=== PATIENT | male | born 1980 | race Caucasian/White ===

== ENCOUNTER 2016-12-21 01:32 | Inpatient (IN) | payer OTHER ==
[~2016-12-21] VITALS: Ht 177.8 cm; Wt 166.0 kg
[~2016-12-21 01:32] MED LIST: ACET-8386 PO; ALBU-136 IH; ASCO500C20 PO; FISH10005 PO; GABA300C PO; LEVO500T6 PO; OMEP20TC10 PO; SULF1TAB12 PO; ZOLP5TAB1 PO
[2016-12-21 01:43] VITALS: BP 111/59
--- NOTE | 2016-12-21 02:15 | NUR ---
PATIENT BIB WHEELCHAIR TO ER BED 3.
--- NOTE | 2016-12-21 02:30 | NUR ---
PATIENT BEING EVALUATED BY DR. ORTIZ.
--- NOTE | 2016-12-21 02:35 | NUR ---
36/M c/o bilateral lower leg pain. Pt dx with bilateral lower leg cellulitis. Pt states the pain in right lower leg is worse than the right. Pt has swelling to bilateral lower legs. Both legs are wrapped with dressings and patient is refusing to have them removed until the doctor sees him. AOX4, states he gets around on the bus and ambulates on his own. Pt states he is homeless at this time.
--- NOTE | 2016-12-21 02:58 | NUR ---
X-Ray at bedside.
[2016-12-21 04:37] LABS: ANION GAP 8.4 (8-16); CARBON DIOXIDE 29.5 mmol/L (21-32); CREATININE 0.8 mg/dL (0.7-1.3); POTASSIUM 3.9 mmol/L (3.5-5.1)
[2016-12-21 04:42] LABS: HEMATOCRIT 31.6 % (36-52); HEMOGLOBIN 9.8 g/dL (12.0-18.0); MEAN CORPUSCULAR HEMOGLOBIN 22 pg (27-31); MEAN CORPUSCULAR HGB CONC 31 g/dL (33-37); MEAN CORPUSCULAR VOLUME 71 fL (80-94); PLATELET COUNT (AUTO) 275 K/uL (140-450); RED BLOOD CELL COUNT(AUTO) 4.46 MIL/uL (4.20-6.10); RED CELL DISTRIBUTION WIDTH 18.2 % (11.6-13.7); WHITE BLOOD COUNT (AUTO) 9.8 K/uL (4.8-10.8)
[2016-12-21 04:49] LABS: TOTAL BILIRUBIN 0.2 mg/dL (0.0-1.0)
[2016-12-21 04:51] LABS: EOSINOPHILS % (MANUAL) 3 % (0-4); LYMPHOCYTES % (MANUAL) 17 % (20-46); MONOCYTES % (MANUAL) 6 % (5-12)
--- NOTE | 2016-12-21 05:07 | NUR ---
Patient noted to have existing wounds upon arrival to ER. Photos taken of wound and placed in chart. Wound covered with dressing.
[2016-12-21] MEDS ORDERED: ACETAMINOPHEN 325 MG TAB PO PRN (05:35)
[2016-12-21] MEDS ORDERED: ONDANSETRON 4 MG/2 ML VIAL IM/IVP PRN (05:35)
--- NOTE | 2016-12-21 06:26 | NUR ---
Patient will be admitted to care of Dr. Hernandez. Admited to TELE. Will go to room 112-B. Belongings list completed. Report to Stephane WILDER.
--- NOTE | 2016-12-21 06:55 | NUR ---
RECEIVED REPORT FROM ER NURSE. PT RESTING IN BED, 36YO MALE, AOX4, ABLE TO VERBALIZE NEEDS. CONDITION STABLE AT THIS TIME. ENDORSED PLAN OF CARE TO AM NURSE TO CONTINUE ADMISSION PROCESS.
[2016-12-21 07:06] LABS: PROTHROMBIN TIME 10.4 secs (10.8-13.4)
[2016-12-21 07:23] LABS: CHOL/HDL RATIO 2.4 (1-4.5); FREE T4 (FREE THYROXINE) 1.06 ng/dL (0.76-1.46); MAGNESIUM 2.1 mg/dL (1.8-2.4); THYROID STIMULATING HORMONE 2.53 uIU/mL (0.34-3.74)
--- NOTE | 2016-12-21 07:26 | NUR ---
RECEIVED PT IN BED. AWAKE. ALERT ORIENTED X4. PT ON O2 AT 2LPM NC. POSITIVE BOWEL SOUNDS NOTED ON FOUR QUADRANTS. PT HAS BILATERAL LEG PAIN, REDNESS WITH BILATERAL THICKNESS ULCERATION NOTED. PT AMBULATORY WITH ASSIST. SAFETY PRECAUTION IN PLACE. CALL LIGHT WITHIN REACH.
[2016-12-21 08:00] VITALS: BP 120/67
--- NOTE | 2016-12-21 08:05 | NUR ---
PATIENT HAS BEEN SCREENED AND CATEGORIZED HIGH RISK. PATIENT WILL BE SEEN WITHIN 1-2 DAYS OF ADMISSION. 12/23/[address]
[2016-12-21] MEDS: LEVOFLOXACIN 750 MG/D5W PREMIX 150 ML IV SCH (08:25)
[2016-12-21] MEDS: NACL 0.9% 1,000 ML IV SCH ×2 (08:25→16:54)
[2016-12-21] MEDS: MORPHINE SULFATE 2 MG/ML SYR IVP PRN (08:41)
[2016-12-21] MEDS: PSYLLIUM 12.2 GM/PKT PO SCH (08:41)
[2016-12-21] MEDS ORDERED: GABA300C PO ×2 (08:55)
[2016-12-21] MEDS ORDERED: OMEP20TC10 PO (08:55)
[2016-12-21] MEDS ORDERED: ACET1TAB93 PO (08:56)
[2016-12-21] MEDS ORDERED: PANTOPRAZOLE 40 MG TABEC PO SCH (09:02)
[2016-12-21] MEDS ORDERED: ASCO500T45 PO (09:05)
[2016-12-21] MEDS ORDERED: ASCORBIC ACID 500 MG TAB PO SCH (09:07)
[2016-12-21] MEDS: GABAPENTIN 300 MG CAP PO SCH ×3 (09:14→16:55)
[2016-12-21] MEDS ORDERED: PNEUMOCOCCAL VACCINE 23 MCG/0.5 ML VIAL IMVAC SCH (10:25)
[2016-12-21 10:26] LABS: APPEARANCE,URINE CLEAR (CLEAR); BILIRUBIN,URINE NEGATIVE (NEGATIVE); BLOOD, URINE NEGATIVE (NEGATIVE); COLOR,URINE YELLOW (YELLOW); LEUKOCYTE ESTERASE ,URINE NEGATIVE (NEGATIVE); NITRITE, URINE NEGATIVE (NEGATIVE); PH,URINE 6.5 (5.0-9.0); UGLUCOSE NEGATIVE (NEGATIVE)
[2016-12-21 10:29] LABS: BARBITURATE, URINE NEG. ng/ml (NEG <=200); BENZODIAZEPINE, URINE NEG. ng/mL (NEG <=200); CANNABINOID, URINE NEG. ng/mL (NEG <=50); COCAINE, URINE NEG. ng/mL (NEG <=300); OPIATE, URINE NEG. ng/mL (NEG <=2000); PHENCYCLIDINE SCREEN,URINE NEG. ng/mL (NEG <=25)
[2016-12-21] MEDS: FERRIC GLUCONATE 125 MG in NACL 0.9% 100 ML IV SCH (10:39)
--- NOTE | 2016-12-21 11:00 | NUR ---
PT OFFERED IF HE WANTED TO TAKE A SHOWER. PT REFUSED THIS TIME.
[2016-12-21 12:00] VITALS: BP 138/65
[2016-12-21] MEDS: CLINDAMYCIN 600 MG in DEXTROSE 5% 50 ML IV SCH ×2 (12:52→17:00)
[2016-12-21] MEDS ORDERED: ZOLPIDEM 5 MG TAB PO PRN (13:00)
--- NOTE | 2016-12-21 13:03 | NUR ---
PT ASLEEP AT THIS TIME. AROUSABLE TO VOICE/TOUCH. PT CONTINUES TO BE ON O2 AT 2LPM NC. ULTRASOUND STAFF CAME TO SEE PT FOR ULTRASOUND OF BOTH LEGS.
--- NOTE | 2016-12-21 14:00 | NUR ---
PT JUST FINISHED HIS LUNCH. PROVIDED PT WARM WASH CLOTHS TO WIPE HIS HANDS. DENIES ANY PAIN OR DISCOMFORT AT THIS TIME. NO SIGNS AND SYMPTOMS OF ACUTE DISTRESS NOTED.
[2016-12-21 16:00] VITALS: BP 110/57
--- NOTE | 2016-12-21 19:19 | NUR ---
PT KEPT CLEAN, DRY AND COMFORTABLE,NEEDS ATTENDED. ENDORSED TO NEXT SHIFT ON STABLE CONDITION FOR CONTINUITY OF CARE. DENIES ANY PAIN OR DISCOMFORT AT THIS TIME.
--- NOTE | 2016-12-21 19:30 | NUR ---
RECEIVED REPORT FROM DAY RN AT BEDSIDE. PATIENT IS AAO4 ON O2 2L NC. NO SOB OR SIGN OF DISTRESS. PATIENT IS LETHARGIC AND STATED HE FEELS TIRED. IV TO LEFT UPPER CHEST, PATENT AND INTACT. SKIN NON INTACT WITH BILATERAL LOWER EXTREMITY CELLULITIS WRAPPED WITH GAUZE. PATIENT URINATED HIMSELF, WILL CLEAN UP. PATIENT DENIES PAIN AT THIS TIME. DISCUSSED PLAN OF CARE WITH PATIENT, PT VERBALIZED UNDERSTANDING. CALL LIGHT WITHIN REACH. WILL CONTINUE TO MONITOR.
[2016-12-21 20:00] VITALS: BP 110/53
--- NOTE | 2016-12-21 22:00 | NUR ---
PATIENT SLEEPING, NO SIGN OF DISTRESS, CALL LIGHT WITHIN REACH. WILL CONTINUE TO MONITOR.
[2016-12-22] VITALS: BP 114/55
--- NOTE | 2016-12-22 | NUR ---
VITAL SIGNS STABLE, NO SOB OR SIGN OF DISTRESS AT THIS TIME. CALL LIGHT WITHIN REACH. WILL CONTINUE TO MONITOR.
[2016-12-22] MEDS: CLINDAMYCIN 600 MG in DEXTROSE 5% 50 ML IV SCH ×4 (00:13→17:34)
[2016-12-22] MEDS: NACL 0.9% 1,000 ML IV SCH ×2 (01:32→06:02)
--- NOTE | 2016-12-22 02:30 | NUR ---
PT SLEEPING, NO SIGN OF DISTRESS, CALL LIGHT WITHIN REACH. WILL CONTINUE TO [place]
[2016-12-22 04:00] VITALS: BP 148/56
--- NOTE | 2016-12-22 04:15 | NUR ---
VITAL SIGNS STABLE, PT SLEEPING, EASILY AWOKEN. NO SIGN OF DISTRESS, CALL LIGHT WITHIN REACH. WILL CONTINUE TO MONITOR
[2016-12-22] MEDS: PANTOPRAZOLE 40 MG TABEC PO SCH (05:52)
[2016-12-22] MEDS: MORPHINE SULFATE 2 MG/ML SYR IVP PRN ×3 (06:02→16:29)
[2016-12-22 06:31] LABS: HEMATOCRIT 30.3 % (36-52); HEMOGLOBIN 9.1 g/dL (12.0-18.0); MEAN CORPUSCULAR HEMOGLOBIN 22 pg (27-31); MEAN CORPUSCULAR HGB CONC 30 g/dL (33-37); MEAN CORPUSCULAR VOLUME 72 fL (80-94); PLATELET COUNT (AUTO) 264 K/uL (140-450); RED BLOOD CELL COUNT(AUTO) 4.22 MIL/uL (4.20-6.10); RED CELL DISTRIBUTION WIDTH 17.9 % (11.6-13.7); WHITE BLOOD COUNT (AUTO) 8.4 K/uL (4.8-10.8)
[2016-12-22 06:38] LABS: ANION GAP 7.4 (8-16); CARBON DIOXIDE 30.7 mmol/L (21-32); CREATININE 0.7 mg/dL (0.7-1.3); POTASSIUM 4.1 mmol/L (3.5-5.1)
[2016-12-22 07:01] LABS: EOSINOPHILS % (MANUAL) 5 % (0-4); LYMPHOCYTES % (MANUAL) 14 % (20-46); MONOCYTES % (MANUAL) 5 % (5-12)
--- NOTE | 2016-12-22 07:32 | NUR ---
ENDORSED PATIENT TO DAY RN AT BEDSIDE, PATIENT IN STABLE CONDITION
--- NOTE | 2016-12-22 07:35 | NUR ---
RECEIVED REPORT FROM CRANKSHAFT GRINDER NURSE, PT IS RESTING IN BED, A/OX4, AMBULATES WITH ASSIST, IV IS ON HIS LEFT UPPER CHEST, PATENT, INTACT, FLUSHING WELL, BILATERAL LOWER EXTREMITY CELLULITIS NOTED, PT IS ON O2 2L NC, NO S/S OF RESPIRATORY DISTRESS OR DISCOMFORT NOTED, DISCUSSED PLAN OF CARE WITH PT, PT VERBALIZED UNDERSTANDING, CALL LIGHT IS WITHIN REACH, WILL CONTINUE TO MONITOR.
[2016-12-22 08:00] VITALS: BP 118/55
[2016-12-22] MEDS: LEVOFLOXACIN 750 MG/D5W PREMIX 150 ML IV SCH (08:58)
[2016-12-22] MEDS: GABAPENTIN 300 MG CAP PO SCH ×3 (08:59→16:29)
[2016-12-22] MEDS: PSYLLIUM 12.2 GM/PKT PO SCH (08:59)
[2016-12-22] MEDS: ASCORBIC ACID 500 MG TAB PO SCH (08:59)
--- NOTE | 2016-12-22 09:07 | NUR ---
DUE MEDICATIONS GIVEN, PT REFUSED METAMUCIL, HEPARIN HELD PTT LOW 20.6
[2016-12-22] MEDS ORDERED: ATORVASTATIN 20 MG TAB PO SCH (09:08)
[2016-12-22] MEDS ORDERED: ALBUTEROL SULFATE/IPRATROPIU 3 ML SOL IH PRN (09:15)
--- NOTE | 2016-12-22 09:30 | NUR ---
PATIENT TAKEN OF O2 NC, PATIENT TOLERATED WELL, WILL CONTINUE TO MONITOR.
[2016-12-22 10:43] LABS: T4 (THYROXINE) 6.9 ug/dL (4.5-12.0)
--- NOTE | 2016-12-22 11:15 | NUR ---
PATIENT IS RESTING IN BED, READING A BOOK, CALL LIGHT WITHIN REACH.
[2016-12-22] MEDS: FERRIC GLUCONATE 125 MG in NACL 0.9% 100 ML IV SCH (11:48)
[2016-12-22 12:00] VITALS: BP 139/71
--- NOTE | 2016-12-22 12:15 | NUR ---
SATURATION 93% ON ROOM AIR PATIENT UNAWARE THAT HE IS OFF SUPPLEMENTAL OXYGEN AT THIS TIME NO C/O OF NASAL DRYNESS POST HHN THERAPY PLACED PATIENT BACK ON SUPPLEMENTAL OXYGEN AT 2 LPM VIA NC
[2016-12-22] MEDS: ALBUTEROL SULFATE/IPRATROPIU 3 ML SOL IH SCH ×2 (12:22→19:33)
--- NOTE | 2016-12-22 15:02 | NUR ---
PATIENT IN THE SHOWER AT THIS TIME.
--- NOTE | 2016-12-22 15:30 | NUR ---
PATIENT BACK IN HIS ROOM. WOUND CARE DONE, DRESSING CHANGED, MINIMAL DRAINAGE NOTED, PT TOLERATED WELL, CALL LIGHT WITHIN REACH.
[2016-12-22 16:00] VITALS: BP 121/60
--- NOTE | 2016-12-22 17:30 | NUR ---
PATIENT RESTING IN BED USING HIS CELL PHONE, CALL LIGHT WITHIN REACH.
--- NOTE | 2016-12-22 19:29 | NUR ---
ENDORSED PT TO GEOSCIENCES FACULTY MEMBER NURSE FOR CONTINUITY OF CARE, PT STABLE AT THIS TIME.
--- NOTE | 2016-12-22 19:30 | NUR ---
RECEIVED REPORT FROM DAY RN AT BEDSIDE, PATIENT IS AAO X4 ON ROOM AIR, NO SOB OR SIGN OF DISTRESS AT THIS TIME. IV TO LEFT UPPER CHEST PATENT AND INTACT, SKIN WITH BILATERAL LOWER EXTREMITY CELLULITIS BOTH EXTREMITIES WITH DRESSINGS, DRY AND INTACT. PATIENT DENIES PAIN AT THIS TIME. DISCUSSED PLAN OF CARE WITH PATIENT, PT VERBALIZED UNDERSTANDING, CALL LIGHT WITHIN REACH. WILL CONTINUE TO MONITOR.
[2016-12-22 20:00] VITALS: BP 116/66
--- NOTE | 2016-12-22 20:24 | NUR ---
PATIENT REFUSED HEPARIN, PATIENT SLEEPING, NO SIGN OF DISTRESS, CALL LIGHT WITHIN REACH. WILL CONTINUE TO MONITOR.
[2016-12-23] VITALS: BP 131/64
[2016-12-23] MEDS: CLINDAMYCIN 600 MG in DEXTROSE 5% 50 ML IV SCH ×2 (00:01→06:02)
[2016-12-23] MEDS: MORPHINE SULFATE 2 MG/ML SYR IVP PRN ×4 (00:01→18:49)
--- NOTE | 2016-12-23 00:20 | NUR ---
VITAL SIGNS STABLE, NO SOB OR SIGN OF DISTRESS, PATIENT C/O PAIN 7/10 TO LOWER EXTREMITIES. ADMINISTERED PAIN MEDICATION PER MD ORDER, CALL LIGHT WITHIN REACH. WILL CONTINUE TO MONITOR
--- NOTE | 2016-12-23 01:56 | NUR ---
PATIENT RESTING IN BED WATCHING TV. NO SIGN OF DISTRESS, CALL LIGHT WITHIN REACH. WILL CONTINUE TO MONITOR
--- NOTE | 2016-12-23 04:17 | NUR ---
PATIENT AWAKE RESTING IN BED, NO COMPLAINTS AT THIS TIME, CALL LIGHT WITHIN REACH. WILL CONTINUE TO MONITOR
[2016-12-23 05:51] LABS: HEMATOCRIT 31.2 % (36-52); HEMOGLOBIN 9.1 g/dL (12.0-18.0); MEAN CORPUSCULAR HEMOGLOBIN 21 pg (27-31); MEAN CORPUSCULAR HGB CONC 29 g/dL (33-37); MEAN CORPUSCULAR VOLUME 72 fL (80-94); PLATELET COUNT (AUTO) 282 K/uL (140-450); RED BLOOD CELL COUNT(AUTO) 4.35 MIL/uL (4.20-6.10); RED CELL DISTRIBUTION WIDTH 17.9 % (11.6-13.7); WHITE BLOOD COUNT (AUTO) 8.4 K/uL (4.8-10.8)
[2016-12-23 06:47] LABS: EOSINOPHILS % (MANUAL) 1 % (0-4); LYMPHOCYTES % (MANUAL) 9 % (20-46); MONOCYTES % (MANUAL) 5 % (5-12)
[2016-12-23] MEDS: PANTOPRAZOLE 40 MG TABEC PO SCH (07:06)
--- NOTE | 2016-12-23 07:22 | NUR ---
ENDORSED PATIENT TO DAY RN AT BEDSIDE, PATIENT IN STABLE CONDITION
--- NOTE | 2016-12-23 07:25 | NUR ---
RECEIVED REPORT FROM FOREST FIRE WARDEN NURSE AT PT BEDSIDE. PT IS AAOX4, ON ROOM AIR, WITH BILATERAL LOWER EXTREMITY CELLULITIS AND POSSIBLE UMBILICAL HERNIA. PT HAS 22 GAUGE IV ON LEFT UPPER CHEST WITH IV FLUIDS INFUSING. NO C/O PAIN. DISCUSSED PLAN OF CARE WITH PT, PT VERBALIZED UNDERSTANDING. PT IS STABLE, WITHOUT SIGNS OF DISTRESS. BED IN LOW POSITION, CALL LIGHT WITHIN REACH. WILL CONTINUE TO MONITOR.
[2016-12-23] MEDS: ALBUTEROL SULFATE/IPRATROPIU 3 ML SOL IH SCH ×3 (07:41→18:51)
[2016-12-23 08:00] VITALS: BP 119/76
[2016-12-23] MEDS: GABAPENTIN 300 MG CAP PO SCH ×3 (09:14→17:48)
[2016-12-23] MEDS: ASPIRIN 81 MG TAB.CHEW PO SCH (09:14)
[2016-12-23] MEDS: ATORVASTATIN 20 MG TAB PO SCH (09:15)
[2016-12-23] MEDS: ASCORBIC ACID 500 MG TAB PO SCH (09:15)
[2016-12-23] MEDS: PSYLLIUM 12.2 GM/PKT PO SCH (09:17)
[2016-12-23] MEDS: LEVOFLOXACIN 750 MG/D5W PREMIX 150 ML IV SCH (09:20)
--- NOTE | 2016-12-23 09:23 | NUR ---
ADMINISTERED SCHEDULED MORNING MEDICATIONS. PT TOLERATED MEDS WELL. BED IN LOW POSITION, CALL LIGHT WITHIN REACH. WILL CONTINUE TO MONITOR.
[2016-12-23] MEDS: NACL 0.9% 1,000 ML IV SCH (09:30)
--- NOTE | 2016-12-23 10:15 | NUR ---
WOUND CARE NURSE AKIRA AND RN CHANGED PT'S DSG. CLEANED WITH NS AND APPLIED ADAPTIC, ABD PAD, AND KERLIX. PT TOLERATED WELL. ELEVATED PT'S BL LE ON A PILLOW AND ALSO WITH CONTROL ON THE BED. CALL LIGHT WITHIN REACH. WILL CONTINUE TO MONITOR.
--- NOTE | 2016-12-23 10:20 | NUR ---
ADMINISTERED MORPHINE FOR PAIN. PT REQUESTED MORPHINE BEFOREHAND TO BE ADMINISTERED AFTER WOUND CARE. PT TOLERATED WELL. PT IS STABLE, WITHOUT SIGNS OF DISTRESS. BED IN LOW POSITION, CALL LIGHT WITHIN REACH. WILL CONTINUE TO MONITOR.
--- NOTE | 2016-12-23 10:28 | NUR ---
WOUND CARE NURSE ASSESSED PT. PT SCRATCHING LOWER ABDOMEN AND GROIN AREA WHERE ABDOMEN OVERLAPS, BUT PT DENIES ITCHINESS. PT REFUSED BEING TOUCHED. HE INSISTED ON LIFTING HIS ABDOMEN HIMSELF BUT WOULD NOT LIFT IT ALL THE WAY UP.WOUND CARE NURSE EXPLAINED THE IMPORTANCE OF BEING ABLE TO ASSESS HIS GROIN AREA, BUT PATIENT STILL REFUSED. PT WAS OFFERED A SHOWER AND PT STATED HE "TOOK ONE YESTERDAY." AND THAT HE ONLY SHOWERS 2 TO 3 TIMES PER WEEK. WOUND CARE NURSE RECOMMENDED A SHOWER EVERYDAY, PT VERBALIZED UNDERSTANDING BUT CHOSE TO RECEIVE A BED BATH INSTEAD. PT UNDERWEAR IS WET, BUT PT REFUSES TO TAKE UNDERWEAR OFF STATING "IT ONLY A LITTLE MOIST." PT REQUESTED MORPHINE FOR PAIN, MORPHINE WAS ADMINISTERED, PT TOLERATED WELL. PT STABLE, WITHOUT SIGNS OF DISTRESS. BED IN LOW POSITION, CALL LIGHT WITHIN REACH. WILL CONTINUE TO MONITOR.
--- NOTE | 2016-12-23 10:30 | NUR ---
WOUND CARE EVALUATION REASON FOR EVALUATION: MULTIPLE BLE CELLULITIS COMPLETE SKIN ASSESSMENT DONE ON THIS 36 Y/O MALE PATIENT ADMITTED TO [facility], WITH INITIAL DIAGNOSIS OF BLE PAIN, BLISTERS AND CELLULITIS. PAST MEDICAL HISTORY INCLUDE ASTHMA, GERD, HTN, HX OF IRON DEFICIENCY ANEMIA AND CARDIAC DISEASE.. ALL ABOVE INFORMATION WAS OBTAINED FROM THE ADMISSION H&P. LABS ARE WBC 8.4, H/H 9.1/31.2, GLUCOSE 99, ALBUMIN 3, PT/INR 10.4/1.0 AND PTT 20.6. BLOOD CULTURE NO GROWTH AFTER 48 HR. L&R LEG WOUND CULTURE OBTAINED. CURRENT MEDS INCLUDE CLINDAMYCIN, LEVOFLOXACIN, ALBUTEROL, ATORVASTATIN AND MORPHINE SULFATE. PATIENT IS AWAKE, ORIENTED TO PERSON, PLACE, DATE AND TIME. SKIN WARM TO TOUCH WNL, TOENAILS ARE LONG AND THICKENED, CAPILLARY REFILL <3 SEC. BLE +3 EDEMA, NO HAIR GROWTH, BLE ARE DRY AND FLAKY, BILATERAL PEDAL PULSES PRESENT. PT REFUSED TO BE CHECKED ON LOWER ABD, GROINS AND DARRYL-AREA, UNABLE TO ASSESS SACRAL, COCCYX AND BUTTOCKS AREAS. INITIAL PLAN OF CARE AND PRESSURE PREVENTIVE MEASURES DISCUSSED WITH PT. AND PRIMARY RN. PT ABLE TO VERBALIZE UNDERSTANDING. INTEGUMENTARY: BILATERAL BREASTFOLDS, ABDOMINAL FOLDS - INTERTRIGINOUS DERMATITIS LATERAL TO POSTERIOR RLE CELLULITIS - 22CM X18CM , MOIST TO WOUND BED ,SURROUNDING SKIN DRY FLAKY LATERAL LLE CELLULITIS- 21CM X15CM WITH 5% YELLOW SLOUGH AT 1-2 O'CLOCK AREA, MOIST TO WOUND BED SURROUNDING SKIN DRY FLAKY LLE MEDIAL ANKLE CELLULITIS -[id number], PW ERYTHEMA ABDOMEN SOFT NOTICE OF DISTENTION AND HERNIA LIKED. NO COMPLAIN OF PAIN RECOMMENDATIONS: -CLEANSE BILATERAL BREASTFOLDS, ABDOMINAL FOLDS WITH MILD SOAP AND WATER, PAT DRY, APPLY ANTIFUNGAL CREAM BID AND PRN WITH SOILING. -CLEANSE LATERAL TO POSTERIOR RLE CELLULITIS WITH NS. PAT DRY APPLY HYDROGEL AND ADAPTIC DRESSING, COVER WITH ABD PAD. SECURE WITH KERLIX BID AND PRN IF SOILING -CLEANSE LATERAL LLE CELLULITIS WITH NS. PAT DRY APPLY THERAHONEY GEL AT 1-2 O'CLOCK YELLOW SLOUGH AREA AND REST OF THE WOUND AREA APPLY HYDROGEL AND ADAPTIC DRESSING, COVER WITH ABD PAD. SECURE WITH KERLIX BID AND PRN IF SOILING -CLEANSE LLE MEDIAL ANKLE CELLULITIS WITH NS. PAT DRY APPLY HYDROGEL AND ADAPTIC DRESSING, COVER WITH ABD PAD. SECURE WITH KERLIX BID AND PRN IF SOILING -TURN AND REPOSITION PATIENT Q 2H -OFFLOAD BILATERAL HEELS BY PLACING PILLOWS UNDER CALVES AT ALL TIMES, UNLESS OTHERWISE CONTRAINDICATED -PRESSURE REDISTRIBUTION SURFACE THERAPY -KEEP SKIN CLEAN AND DRY AT ALL TIMES. - MAY HAVE DEBRIDEMENT IF NOT RESPONDING TO THERAHONY TX RECOMMENDATIONS DISCUSSED WITH PRIMARY RN AND DR. HAWKINS WILL FOLLOW UP PATIENT Q7-10 DAYS AND PRN. PLEASE CONTACT WOUND CARE NURSE FOR ANY CONCERNS, QUESTIONS AND CHANGES IN WOUND CONDITION.
--- NOTE | 2016-12-23 10:35 | NUR ---
WOUND CARE NURSE AKIRA GAVE WOUND CARE RECOMMENDATION TO DR. HAWKINS AND INFORMED HIM REGARDING PT'S REFUSAL OF GROIN EXAMINATION.
--- NOTE | 2016-12-23 10:50 | NUR ---
LAB CALLED TO REPORT PSEUMONAS AEUROGINOSA AND MDRO FOUND ON PT'S LEGS BILATERALLY, AND SECOND FLOOR OPERATOR ON LEFT LEG. SPOKE TO DR MCINTOSH. AWAITING ORDERS.
[2016-12-23] MEDS: FERRIC GLUCONATE 125 MG in NACL 0.9% 100 ML IV SCH (11:12)
--- NOTE | 2016-12-23 11:15 | NUR ---
SCHEDULED MEDICATION ADMINISTERED. PT TOLERATED WELL. PT IS STABLE, WITHOUT SIGNS OF DISTRESS. BED IN LOW POSITION, CALL LIGHT WITHIN REACH. WILL CONTINUE TO MONITOR.
[2016-12-23] MEDS: SKINTEGRITY HYDROGEL TP SCH (11:50)
[2016-12-23] MEDS: THERAHONEY GEL 42.5 GM TP SCH (11:50)
--- NOTE | 2016-12-23 11:50 | NUR ---
HOLD HYDROGEL AND THERA HONEY AT THIS TIME DUE TO DSG CHANGED AT 1000. DSG IS ONLY TO BE CHANGED BID.
[2016-12-23] MEDS: NYSTATIN/TRIAMCINOLONE CRM 15 GM TUBE TP SCH ×2 (12:00→20:33)
--- NOTE | 2016-12-23 12:56 | NUR ---
12/23/16 RD INITIAL ASSESSMENT COMPLETED PLEASE REFER TO NUTRITION ASSESSMENT UNDER CARE ACTIVITY FOR ESTIMATED NUTRITIONAL NEEDS. 1. CONTINUE REGULAR DIET 2. PROVIDE NUTRITION THERAPY EDUCATION NEEDED 3. RD TO FOLLOW-UP MODERATE RISK, 3-[address]
--- NOTE | 2016-12-23 13:16 | NUR ---
ROCEPHIN BAG IVPB ADMINISTERED. PT TOLERATED WELL, WILL CONTINUE TO MONITOR FOR REACTION. PT IS STABLE, WITHOUT SIGNS OF DISTRESS. BED IN LOW POSITION, CALL LIGHT WITHIN REACH.
--- NOTE | 2016-12-23 14:00 | NUR ---
CALLED DIETARY AND LEFT A MESSAGE ORDERING ANOTHER SANDWICH PER PT REQUEST.
[2016-12-23 16:00] VITALS: BP 112/53
--- NOTE | 2016-12-23 16:00 | NUR ---
PT IS STABLE, WITHOUT SIGNS OF DISTRESS. VITAL SIGNS WNL. PT DENIES PAIN AT THIS TIME. BED IN LOW POSITION, CALL LIGHT WITHIN REACH. WILL CONTINUE TO MONITOR.
--- NOTE | 2016-12-23 17:48 | NUR ---
ADMINISTERED SCHEDULED MEDICATION. PT TOLERATED WELL. PT IS STABLE, WITHOUT SIGNS OF DISTRESS. BED IN LOW POSITION, CALL LIGHT WITHIN REACH. WILL CONTINUE TO MONITOR.
--- NOTE | 2016-12-23 17:49 | NUR ---
ADMINISTERED SCHEDULED MEDICATION. PT TOLERATED WELL. BED IN LOW POSITION, CALL LIGHT WITHIN REACH. WILL CONTINUE TO MONITOR.
--- NOTE | 2016-12-23 18:32 | NUR ---
SPOKE TO DR. WALKER REGARDING WOUND CARE ORDER. WILL PUT IN ORDER.
[2016-12-23] MEDS ORDERED: DRY DRESSING TP PRN (18:35)
[2016-12-23] MEDS ORDERED: GAUZE TP PRN (18:35)
[2016-12-23] MEDS ORDERED: WOUND CARE PREPARATION 178 ML SPR TP PRN (18:35)
[2016-12-23] MEDS ORDERED: NACL 0.9% IRR 250 ML BOTTLE IR PRN (18:35)
[2016-12-23] MEDS ORDERED: THERAHONEY WOUND DRESSING TP PRN (18:35)
[2016-12-23] MEDS: THERAHONEY WOUND DRESSING TP SCH (18:48)
--- NOTE | 2016-12-23 18:49 | NUR ---
THERAHONEY NOT GIVEN AT THIS TIME DSG CHANGE PER PRINTING EQUIPMENT MECHANIC APPRENTICE AKIRA IS BID AND PRN. DSG CHANGE DONE AT 1000.
--- NOTE | 2016-12-23 19:21 | NUR ---
ENDORSED PT TO GAME PROGRAMMER RN FOR CONTINUITY OF CARE. PT IN STABLE CONDITION.
--- NOTE | 2016-12-23 19:30 | NUR ---
RECEIVED REPORT FROM AM NURSE. PT RESTING IN BED, AOX4, ABLE TO VERBALIZE NEEDS. PT C/O BLE PAIN. PT ALREADY MEDICATED WITH MORPHINE IV BY AM NURSE. PT TEMP 99.9; ICE PACKS AND COOLING MEASURES ENSURED. PT REQUESTED TYLENOL FOR PAIN AND TEMP LATER. PT DENIES CHEST PAIN, SOB OR S/S OF ACUTE DISTRESS. PT STATED HE WANTED TO HAVE O2 BEFORE SLEEPING. SPO2 96% AT O2 2L NC, RR 28. BLE CELLULITIS NOTED, DRESSING CLEAN DRY AND INTACT, ELEVATED WITH PILLOWS. IV ACCESS ASYMPTOMATIC, PATENT AND INTACT. IVF INFUSING WELL. DISCUSSED AND REVIEWED PLAN OF CARE WITH PT. PT VERBALIZED UNDERSTANDING. ALL NEEDS MET. SAFETY MEASURES ENSURED. CALL LIGHT WITHIN REACH. WILL CONTINUE TO MONITOR.
[2016-12-23 20:00] VITALS: BP 115/70
[2016-12-23] MEDS: CIPROFLOXACIN 250 MG TAB PO SCH (20:32)
--- NOTE | 2016-12-23 20:33 | NUR ---
ADMINISTERED DUE MEDS WITH EDUCATION. PT VERBALIZED UNDERSTANDING, TOLERATED MEDS WELL. IVF INFUSING WELL. ALL NEEDS MET. SAFETY MEASURES ENSURED. CALL LIGHT WITHIN REACH. WILL CONTINUE TO MONITOR.
[2016-12-24] VITALS: BP 114/73
--- NOTE | 2016-12-24 | NUR ---
PT SLEEPING COMFORTABLY. NO S/S OF ACUTE DISTRESS FROM BASELINE. SPO2 96% AT O2 2L NC, RR 28 WHILE SLEEPING. IVF INFUSING WELL. ALL NEEDS MET. SAFETY MEASURES ENSURED. CALL LIGHT WITHIN REACH.
[2016-12-24] MEDS: THERAHONEY WOUND DRESSING TP SCH ×3 (00:56→13:00)
[2016-12-24] MEDS: THERAHONEY GEL 42.5 GM TP SCH ×2 (03:00→09:00)
[2016-12-24] MEDS: SKINTEGRITY HYDROGEL TP SCH ×2 (03:00→09:00)
--- NOTE | 2016-12-24 03:00 | NUR ---
SPOKE WITH DR WALKER, CLARIFIED WOUND CARE ORDER OF THERAHONEY WOUND DRESSING. MD STATED IT IS OK TO PERFORM WOUND CARE WOUND CARE NURSE RECOMMENDS INSTEAD. MADE MD AWARE THAT PT IS AGITATED TO DUE BEING WOKEN UP AT NIGHT FOR WOUND CARE. MD AT BEDSIDE TO SPEAK WITH PT. MD TO CHANGE WOUND CARE TIMES, ORDERS PENDING. PERFORMED WOUND CARE DRESSING CHANGES. CLEANSED RIGHT LEG WITH NS AND GAUZE, APPLIED HYDROGEL AND ADAPTIC TO WOUND, COVERED WITH ABD PAD AND WRAPPED WITH KERLIX. CLEANSED LEFT LEG WITH NS AND GAUZE, APPLIED THERAHONEY AND ADAPTIC TO SLOUGH ON LATERAL SIDE, APPLIED HYDROGEL AND ADAPTIC TO OTHER PARTS OF WOUND ON LATERAL SIDE AND ALSO MEDIAL SIDE OF WOUND, COVERED WITH ABD PAD AND WRAPPED WITH KERLIX. PT C/O PAIN BUT TOLERATED WELL. ALL NEEDS MET. SAFETY MEASURES ENSURED. CALL LIGHT WITHIN REACH. WILL CONTINUE TO MONITOR.
[2016-12-24] MEDS: NACL 0.9% 1,000 ML IV SCH (03:32)
[2016-12-24] MEDS: MORPHINE SULFATE 2 MG/ML SYR IVP PRN ×4 (04:25→21:04)
--- NOTE | 2016-12-24 04:25 | NUR ---
PT C/O BLE PAIN. SEE PAIN ASSESSMENT. ADMINISTERED DUE MORPHINE IV PRN WITH EDUCATION ORDERED. PT TOLERATED WELL. ALL NEEDS MET. SAFETY MEASURES ENSURED. CALL LIGHT WITHIN REACH. WILL CONTINUE TO MONITOR.
[2016-12-24] MEDS: PANTOPRAZOLE 40 MG TABEC PO SCH (06:33)
[2016-12-24 06:41] LABS: FOLIC ACID 5.9 ng/mL (>3.0)
[2016-12-24] MEDS: ALBUTEROL SULFATE/IPRATROPIU 3 ML SOL IH SCH ×3 (07:00→18:00)
--- NOTE | 2016-12-24 07:15 | NUR ---
ENDORSED PLAN OF CARE TO AM NURSE. CONDITION STABLE.
--- NOTE | 2016-12-24 07:20 | NUR ---
RECEIVED REPORT FROM BUSINESS ASST NURSE AT PT BEDSIDE. PT IS AAOX4, ON ROOM AIR, WITH BILATERAL LOWER EXTREMITY CELLULITIS AND POSSIBLE UMBILICAL HERNIA. PT HAS 22 GAUGE IV ON LEFT UPPER CHEST WITH IV FLUIDS INFUSING AT 50ML/HR. NO C/O PAIN. DISCUSSED PLAN OF CARE WITH PT, PT VERBALIZED UNDERSTANDING. PT IS STABLE, WITHOUT SIGNS OF DISTRESS. BED IN LOW POSITION, CALL LIGHT WITHIN REACH. WILL CONTINUE TO MONITOR.
[2016-12-24 08:00] VITALS: BP 122/66
--- NOTE | 2016-12-24 08:45 | NUR ---
WIRE PHOTO OPERATOR NEWS SPOKE WITH ME ABOUT PT. PT GOWN IS DIRTY AND PT REFUSING TO CHANGE IT. EXPLAINED TO PT WOUND CARE NURSE RECOMMENDATIONS ABOUT KEEPING SKIN CLEAN. PT VERBALIZED UNDERSTANDING, BUT STILL REFUSING TO CHANGE GOWN.
[2016-12-24] MEDS: PSYLLIUM 12.2 GM/PKT PO SCH (09:00)
[2016-12-24] MEDS ORDERED: THERAHONEY GEL 42.5 GM TP SCH (09:00)
[2016-12-24] MEDS ORDERED: SKINTEGRITY HYDROGEL TP SCH (09:00)
[2016-12-24] MEDS: NYSTATIN/TRIAMCINOLONE CRM 15 GM TUBE TP SCH ×2 (09:00→21:09)
[2016-12-24] MEDS: ASPIRIN 81 MG TAB.CHEW PO SCH (09:29)
[2016-12-24] MEDS: ATORVASTATIN 20 MG TAB PO SCH (09:30)
[2016-12-24] MEDS: ASCORBIC ACID 500 MG TAB PO SCH (09:30)
[2016-12-24] MEDS: CIPROFLOXACIN 250 MG TAB PO SCH ×2 (09:31→21:09)
[2016-12-24] MEDS: GABAPENTIN 300 MG CAP PO SCH ×3 (09:32→16:04)
--- NOTE | 2016-12-24 09:45 | NUR ---
ADMINISTERED SCHEDULED MORNING MEDICATIONS AND MORPHINE FOR PAIN. PT REFUSED NYSTATIN, THERAHONEY, AND HYDROGEL. PT TOLERATED MEDS WELL. PT IS STABLE, WITHOUT SIGNS OF DISTRESS. BED IN LOW POSITION, CALL LIGHT WITHIN REACH. WILL CONTINUE TO MONITOR.
--- NOTE | 2016-12-24 10:23 | NUR ---
DR. MCKEON EXAMINED PT IN ROOM. STATED PT CAN GO HOME IF STABLE. Addendum: 12/24/16 at 1029 by Nyasia Eisenberg RN WRONG ENTRY
--- NOTE | 2016-12-24 11:15 | NUR ---
PT IN STABLE CONDITION, NO SIGNS OF DISTRESS NOTED. NO C/O PAIN AT THE MOMENT. BED IN LOW POSITION, CALL LIGHT WITHIN REACH. WILL CONTINUE TO MONITOR.
[2016-12-24] MEDS: FERRIC GLUCONATE 125 MG in NACL 0.9% 100 ML IV SCH (11:16)
--- NOTE | 2016-12-24 13:25 | NUR ---
ADMINISTERED SCHEDULED MEDICATIONS. PT TOLERATED WELL. PT IN STABLE CONDITION, NO SIGNS OF DISTRESS NOTED.BED IN LOW POSITION, CALL LIGHT WITHIN REACH. WILL CONTINUE TO MONITOR.
--- NOTE | 2016-12-24 14:14 | NUR ---
1030 MET WITH PT TO DISCUSS PROBABLE DISCHARGE TOMORROW AND ASKED PT WHAT HIS PLAN IS. PT STATED THAT HIS PLAN WILL DEPEND ON HOW HE FEELS. STATED "I'M NOT GOING TO APPEAL THE DISCHARGE BUT IF I STILL HAVE PAIN THEN I'M GOING OUT TO [facility]". INFORMED PT THAT PER MD THE CULTURE REPORT INDICATES THAT PT CAN BE DISCHARGED ON PO ABX AND THAT HIS LEG CONDITION IS CHRONIC. PT STATES THAT HE IS AWARE OF THAT AND THAT HE HAS BEEN DOING HIS OWN WOUND CARE. PT AGAIN STATED THAT WHERE HE GOES POST DISCHARGE "WILL DEPEND ON HOW I FEEL".
--- NOTE | 2016-12-24 15:00 | NUR ---
PT RESTING COMFORTABLY IN BED. NO DISTRESS NOTED. CALL LIGHT WITHIN REACH. WILL CONTINUE TO MONITOR.
[2016-12-24 16:00] VITALS: BP 122/69
--- NOTE | 2016-12-24 16:04 | NUR ---
ADMINISTERED MORPHINE FOR PAIN. PT TOLERATED WELL. BED IN LOW POSITION, CALL LIGHT WITHIN REACH. WILL CONTINUE TO MONITOR.
--- NOTE | 2016-12-24 17:37 | NUR ---
CLOTH EXAMINER MACHINE HELPED PT WASH UP. PT TOLERATED WELL. CALL LIGHT WITHIN REACH. WILL CONTINUE TO MONITOR.
--- NOTE | 2016-12-24 18:27 | NUR ---
OFFERED TO CHANGE PT DIRTY GOWN. PT REFUSED AGAIN. OTHERWISE PT IS STABLE, WITHOUT SIGNS OF DISTRESS. BED IN LOW POSITION, CALL LIGHT WITHIN REACH. WILL CONTINUE TO MONITOR.
--- NOTE | 2016-12-24 18:48 | NUR ---
PATIENT STATED HE IS EATING AT THIS TIME, NO SIGNS OF RESP. DISTRESS
--- NOTE | 2016-12-24 19:22 | NUR ---
ENDORSED PT TO SCHOOL LUNCH MONITOR NURSE FOR CONTINUITY OF CARE. PT IN STABLE CONDITION.
--- NOTE | 2016-12-24 19:23 | NUR ---
RECD. RESTING IN BED AWAKE, A/OX4, OBESE, AMBULATORY. WATCHING TV. RESPIRATION EVEN AND UNLABORED. IV SITE IN THE LEFT UPPER CHEST, G22 PATENT AND INTACT. BILATERAL LOWER EXTREMITIES WOUND COVERED WITH DRESSING DRY AND INTACT. PAIN IN THE BLE 04/23, MEDICATE ORDERED. PLAN OF CARE FOR THE SHIFT DISCUSSED. VERBALIZED UNDERSTANDING.
--- NOTE | 2016-12-24 20:50 | NUR ---
ENDORSED TO MEÑO OH FOR CONTINUITY OF CARE.
[2016-12-24 21:00] VITALS: BP 122/60
--- NOTE | 2016-12-24 21:00 | NUR ---
RECEIVED REPORT FROM VIRIDIANA SHIELDS. SEEN PT AWAKE, ALERT AND ORIENTED ASKING FOR HIS PAIN MEDICINE. INITIAL ASSESSMENT DONE. PT'S PAIN LEVEL IS 7/10 ON BILATERAL LOWER EXTREMITIES. PT MEDICATED W/ MORPHINE 2MG IVP ORDERED. OTHER MEDICATIONS GIVEN. TEACHINGS PROVIDED. SAFETY REINFORCED. PT IS ON ISOLATION.
--- NOTE | 2016-12-24 22:35 | NUR ---
SEEN PT SLEEPING SOUNDLY. NO DISCOMFORT SEEN. CALL LIGHT W/IN REACH.
[2016-12-25] MEDS: THERAHONEY WOUND DRESSING TP SCH ×2 (01:00→13:00)
--- NOTE | 2016-12-25 01:15 | NUR ---
SEEN PT AWAKE. PT REFUSED THE THERAHONEY GEL APPLICATION ON HIS WOUND. TEACHINGS GIVEN BUT STILL REFUSED. DRESSING ON BLE DRY AND INTACT. PT ABLE TO MOVE HIS LOWER EXTREMITIES. URINAL EMPTIED. CALL LIGHT W/IN REACH.
[2016-12-25] MEDS: HYDROcodone/APAP 7.5/325 MG 1 TAB PO PRN ×3 (01:37→13:36)
[2016-12-25 04:00] VITALS: BP 137/70
--- NOTE | 2016-12-25 05:40 | NUR ---
AWAKEN PT. IVF CHANGED. PT'S IV ALMOST OUT. PT TOOK HIS PROTONIX TAB. TEACHINGS GIVEN. WILL REINSERT IV.
[2016-12-25] MEDS: NACL 0.9% 1,000 ML IV SCH (05:42)
[2016-12-25] MEDS: PANTOPRAZOLE 40 MG TABEC PO SCH (05:43)
[2016-12-25] MEDS: ALBUTEROL SULFATE/IPRATROPIU 3 ML SOL IH SCH ×2 (06:00→12:00)
--- NOTE | 2016-12-25 06:05 | NUR ---
KYLAH CHARGE NURSE ATTEMPTED TWICE TO PLACE AN IV ON PT BUT IT KEEPS BLOWING. WILL ATTEMPT AGAIN LATER.
[2016-12-25 06:08] LABS: HEMATOCRIT 33.6 % (36-52); HEMOGLOBIN 10.3 g/dL (12.0-18.0); MEAN CORPUSCULAR HEMOGLOBIN 22 pg (27-31); MEAN CORPUSCULAR HGB CONC 31 g/dL (33-37); MEAN CORPUSCULAR VOLUME 71 fL (80-94); PLATELET COUNT (AUTO) 309 K/uL (140-450); RED BLOOD CELL COUNT(AUTO) 4.73 MIL/uL (4.20-6.10); RED CELL DISTRIBUTION WIDTH 17.8 % (11.6-13.7)
[2016-12-25 06:28] LABS: CARBON DIOXIDE 31.9 mmol/L (21-32); CREATININE 0.8 mg/dL (0.7-1.3); POTASSIUM 3.9 mmol/L (3.5-5.1)
[2016-12-25 07:09] LABS: EOSINOPHILS % (MANUAL) 3 % (0-4); LYMPHOCYTES % (MANUAL) 13 % (20-46); METAMYELOCYTES % 2 % (0-0); MONOCYTES % (MANUAL) 2 % (5-12)
--- NOTE | 2016-12-25 07:30 | NUR ---
RECEIVED PT AAOX4. NO SOB NOTED. NO C/O PAIN AT THIS TIME. NO IV ACCESS. ATTENDING DOCTOR MADE AWARE. PLAN FOR DISCHARGE TODAY.
[2016-12-25 08:00] VITALS: BP 116/55
[2016-12-25] MEDS: THERAHONEY GEL 42.5 GM TP SCH (09:00)
[2016-12-25] MEDS: PSYLLIUM 12.2 GM/PKT PO SCH (09:52)
[2016-12-25] MEDS: ATORVASTATIN 20 MG TAB PO SCH (09:53)
[2016-12-25] MEDS: GABAPENTIN 300 MG CAP PO SCH ×2 (09:53→13:36)
[2016-12-25] MEDS: ASPIRIN 81 MG TAB.CHEW PO SCH (09:53)
[2016-12-25] MEDS: CIPROFLOXACIN 250 MG TAB PO SCH (09:53)
[2016-12-25] MEDS: ASCORBIC ACID 500 MG TAB PO SCH (09:54)
[2016-12-25] MEDS: FERRIC GLUCONATE 125 MG in NACL 0.9% 100 ML IV SCH (11:00)
[2016-12-25] MEDS ORDERED: NYSTRC TP (11:01)
[2016-12-25] MEDS ORDERED: [UNRECOGNIZED DRUG - CODE] TP (11:01)
[2016-12-25] MEDS ORDERED: ASPI81CT95 PO (11:01)
[2016-12-25] MEDS ORDERED: CIPR250T3 PO (11:01)
[2016-12-25] MEDS ORDERED: ATOR20TA40 PO (11:01)
[2016-12-25] MEDS ORDERED: Therahoney Gel TP (11:01)
[2016-12-25] MEDS ORDERED: ACET-1182 PO (11:01)
[2016-12-25] MEDS ORDERED: ACET1TAB93 PO (11:01)
[2016-12-25] MEDS ORDERED: AMOX-999 PO (11:06)
--- NOTE | 2016-12-25 12:10 | NUR ---
PT CONSUMED HIS BREAKFAST AND LUNCH 100%. FOOD TOLERATED WELL.
--- NOTE | 2016-12-25 13:28 | NUR ---
PT SLEEPING NO HHN NEEDED NO SIGNS OF DISTRESS NOTED AT THIS TIME
--- NOTE | 2016-12-25 13:30 | NUR ---
DISCHARGE PHOTOS TAKEN AND DOCUMENTED.
[2016-12-25] MEDS: NYSTATIN/TRIAMCINOLONE CRM 15 GM TUBE TP SCH (13:37)
[2016-12-25] MEDS: SKINTEGRITY HYDROGEL TP SCH (13:38)
[2016-12-25] MEDS ORDERED: FERR324T11 PO (14:35)
--- NOTE | 2016-12-25 14:45 | NUR ---
DISCHARGE INSTRUCTIONS AND PRESCRIPTIONS GIVEN TO PT WHICH VERBALIZED FULL UNDERSTANDING OF THE INSTRUCTIONS GIVEN AND THE NEED TO FOLLOW UP WITH DR. FLOWERS[facility] GROUP ON THE GIVEN TIME AND DATE. ARM BANDS AND IV REMOVED, CANNULA TIP INTACT. WOUND CARE SUPPLIES GIVEN TO PT, PT VERBALIZED UNDERSTANDING ON HOW TO DO HIS OWN WOUND DRESSING. PT STATED HE WILL BE THE ONE TO CALL A CAB WHEN HE IS READY TO GO.
--- NOTE | 2016-12-25 15:30 | NUR ---
PT WHEELED OUT TO THE FRONT LOBBY BY [facility] IN STABLE CONDITION ALONG WITH ALL HIS BELONGINGS. PT ALREADY CALLED A [facility] AND WANTS TO WAIT IN THE FRONT. PT IS DISCHARGE TO SELF GOING TO HIS FRIENDS HOUSE IN [place] VIA [facility].
== END 2016-12-25 15:30 | disposition home or self-care (01) | DRG 602 ==
LOC: MED 01:32 → MTU 05:57
PROVIDERS: ADMIT Family Medicine; ATTEND Family Medicine
PROC: 3E0234Z Introduction of Serum, Toxoid and Vaccine into Muscle, Percutaneous Approach (ICD-10-PCS; principal; 2016-12-25)
DX: L03.116 Cellulitis of left lower limb (principal); N17.0 Acute kidney failure with tubular necrosis; E44.0 Moderate protein-calorie malnutrition; Z68.43 Body mass index [BMI] 50.0-59.9, adult; I42.0 Dilated cardiomyopathy; E11.51 Type 2 diabetes mellitus with diabetic peripheral angiopathy without gangrene; L97.919 Non-pressure chronic ulcer of unspecified part of right lower leg with unspecified severity; L97.929 Non-pressure chronic ulcer of unspecified part of left lower leg with unspecified severity; E11.622 Type 2 diabetes mellitus with other skin ulcer; E66.01 Morbid (severe) obesity due to excess calories; L03.115 Cellulitis of right lower limb; D50.9 Iron deficiency anemia, unspecified; I10 Essential (primary) hypertension; G47.30 Sleep apnea, unspecified; K21.9 Gastro-esophageal reflux disease without esophagitis; I87.2 Venous insufficiency (chronic) (peripheral); J45.909 Unspecified asthma, uncomplicated; Z88.2 Allergy status to sulfonamides; Z88.1 Allergy status to other antibiotic agents; Z23 Encounter for immunization
CPT/HCPCS: 36415; 71010; 80048; 80053; 80305; 81003; 82607; 82746; 83036; 83540; 83605; 83735; 83880; 84100; 84436; 84439; 84443; 84479; 84484; 85025; 85045; 85610; 85730; 87040; 87070; 87077; 87081; 87186; 90732; 93005; 93925; 93970; 94640; 99285; A6248; J0696; J1644; J1956; J2270; J2916; J3490; J7030; J7060; J7620; Q0092

== ENCOUNTER 2017-01-10 03:25 | Observation (INO) | payer OTHER ==
[~2017-01-10] VITALS: Ht 177.8 cm; Wt 165.6 kg
[~2017-01-10 03:25] MED LIST changes: +ACET-1182 PO; -ACET-8386 PO; +ACET1TAB93 PO; -ALBU-136 IH; +AMOX-999 PO; -ASCO500C20 PO; +ASCO500T45 PO; +ASPI81CT95 PO; +ATOR20TA40 PO; +CIPR250T3 PO; +FERR324T11 PO; -FISH10005 PO; -LEVO500T6 PO; +NYSTRC TP; -SULF1TAB12 PO; +Therahoney Gel TP; -ZOLP5TAB1 PO; +[UNRECOGNIZED DRUG - CODE] TP
[2017-01-10 03:30] VITALS: BP 113/64
[2017-01-10] MEDS ORDERED: ACET-2869 PO (03:33)
[2017-01-10] MEDS ORDERED: MORPHINE SULFATE 2 MG/ML SYR IVP ONE (03:45)
[2017-01-10] MEDS ORDERED: ASPIRIN 81 MG TAB.CHEW PO ONE (03:45)
[2017-01-10 04:10] LABS: BASOPHILS # (AUTO) 0.1 K/uL (0.00-0.22); EOSINOPHILS # (AUTO) 0.2 K/uL (0-0.4); EOSINOPHILS % (AUTO) 2.1 % (0.0-4.0); HEMOGLOBIN 9.7 g/dL (12.0-18.0); LYMPHOCYTES # (AUTO) 1.3 K/uL (2.0-11.5); LYMPHOCYTES % (AUTO) 13.1 % (20.5-51.1); MEAN CORPUSCULAR HEMOGLOBIN 21 pg (27-31); MEAN CORPUSCULAR HGB CONC 30 g/dL (33-37); MEAN CORPUSCULAR VOLUME 72 fL (80-94); MONOCYTES # (AUTO) 0.6 K/uL (0.8-1.0); MONOCYTES % (AUTO) 5.9 % (1.7-9.3); NEUTROPHILS # (AUTO) 7.6 K/uL (1.8-7.7); NEUTROPHILS % (AUTO) 77.9 % (42.2-75.2); PLATELET COUNT (AUTO) 314 K/uL (140-450); RED BLOOD CELL COUNT(AUTO) 4.56 MIL/uL (4.20-6.10); RED CELL DISTRIBUTION WIDTH 19.5 % (11.6-13.7); WHITE BLOOD COUNT (AUTO) 9.8 K/uL (4.8-10.8)
[2017-01-10 04:13] LABS: HEMATOCRIT 29.1 % (36-52)
[2017-01-10 04:28] LABS: ALBUMIN 3.1 g/dL (3.4-5.0); ANION GAP 9.8 (8-16); CARBON DIOXIDE 29.1 mmol/L (21-32); CREATININE 0.8 mg/dL (0.7-1.3); POTASSIUM 3.9 mmol/L (3.5-5.1); TOTAL BILIRUBIN 0.3 mg/dL (0.0-1.0)
[2017-01-10] MEDS ORDERED: DOCUSATE SODIUM 100 MG GELCAP PO PRN (05:05)
[2017-01-10] MEDS ORDERED: HYDROcodone/APAP 7.5/325 MG 1 TAB PO PRN (05:05)
[2017-01-10] MEDS ORDERED: ACETAMINOPHEN 325 MG TAB PO PRN (05:05)
[2017-01-10] MEDS ORDERED: MORPHINE SULFATE 2 MG/ML SYR IVP PRN (05:05)
[2017-01-10] MEDS ORDERED: ONDANSETRON 4 MG/2 ML VIAL IM/IVP PRN (05:05)
[2017-01-10] MEDS ORDERED: NACL 0.9% 1,000 ML IV SCH (05:05)
[2017-01-10 06:33] LABS: PROTHROMBIN TIME 10.9 secs (10.8-13.4)
[2017-01-10 06:48] LABS: BARBITURATE, URINE NEG. ng/ml (NEG <=200); BENZODIAZEPINE, URINE NEG. ng/mL (NEG <=200); CANNABINOID, URINE NEG. ng/mL (NEG <=50); COCAINE, URINE NEG. ng/mL (NEG <=300); OPIATE, URINE NEG. ng/mL (NEG <=2000); PHENCYCLIDINE SCREEN,URINE NEG. ng/mL (NEG <=25)
[2017-01-10] MEDS ORDERED: CLINDAMYCIN 600 MG in DEXTROSE 5% 50 ML IV SCH ×2 (07:00→12:00)
[2017-01-10 07:57] LABS: MAGNESIUM 1.8 mg/dL (1.8-2.4); PHOSPHORUS 3.3 mg/dL (2.5-4.9)
[2017-01-10 08:00] VITALS: BP 95/49
[2017-01-10] MEDS ORDERED: FUROSEMIDE 20 MG/2 ML VIAL IVP SCH (09:00)
[2017-01-10] MEDS ORDERED: ECOTRIN 81 MG TABEC PO SCH (09:00)
[2017-01-10] MEDS ORDERED: ATORVASTATIN 20 MG TAB PO SCH (09:00)
[2017-01-10] MEDS ORDERED: PANTOPRAZOLE 40 MG TABEC PO SCH (09:49)
[2017-01-10 12:00] VITALS: BP 98/47
[2017-01-10] MEDS ORDERED: GABAPENTIN 300 MG CAP PO SCH (13:00)
[2017-01-10 13:08] LABS: APPEARANCE,URINE CLEAR (CLEAR); BILIRUBIN,URINE NEGATIVE (NEGATIVE); BLOOD, URINE NEGATIVE (NEGATIVE); COLOR,URINE YELLOW (YELLOW); LEUKOCYTE ESTERASE ,URINE NEGATIVE (NEGATIVE); NITRITE, URINE NEGATIVE (NEGATIVE); UGLUCOSE NEGATIVE (NEGATIVE)
[2017-01-10] MEDS ORDERED: LACTOBACILLUS RHAMNOSUS GG 1 EACH CAP PO SCH (14:13)
[2017-01-10] MEDS ORDERED: ACET-1182 PO (14:15)
[2017-01-10] MEDS ORDERED: AMOX-999 PO (14:15)
[2017-01-10] MEDS ORDERED: ACET-9529 PO (14:15)
[2017-01-10] MEDS ORDERED: LAS20I PO (14:15)
[2017-01-10] MEDS ORDERED: GABA-638 PO (14:15)
[2017-01-10] MEDS ORDERED: ATOR20TA40 PO (14:15)
[2017-01-10] MEDS ORDERED: FERR324T11 PO (14:15)
[2017-01-10] MEDS ORDERED: LACT10CA1 PO (14:15)
[2017-01-10] MEDS ORDERED: ASPI-1173 PO (14:15)
[2017-01-10] MEDS ORDERED: PANT40EC28 PO (14:15)
[2017-01-10] MEDS ORDERED: CIPR500T4 PO (14:15)
[2017-01-11] MEDS ORDERED: PANTOPRAZOLE 40 MG TABEC PO SCH (06:30)
[2017-01-11] MEDS ORDERED: FERROUS GLUCONATE 324 MG TAB PO SCH (08:00)
[2017-01-11] MEDS ORDERED: LACTOBACILLUS RHAMNOSUS GG 1 EACH CAP PO SCH (09:00)
== END 2017-01-10 18:20 | disposition home or self-care (01) ==
LOC: MED 03:25 → MTU 05:08
PROVIDERS: ADMIT Family Medicine Sports Medicine; ATTEND Family Medicine Sports Medicine
DX: L03.115 Cellulitis of right lower limb (principal); L03.116 Cellulitis of left lower limb; I10 Essential (primary) hypertension; J45.909 Unspecified asthma, uncomplicated; K21.9 Gastro-esophageal reflux disease without esophagitis; D50.9 Iron deficiency anemia, unspecified; G47.30 Sleep apnea, unspecified; I42.0 Dilated cardiomyopathy; I89.0 Lymphedema, not elsewhere classified; E46 Unspecified protein-calorie malnutrition; E66.01 Morbid (severe) obesity due to excess calories; I73.9 Peripheral vascular disease, unspecified; Z68.43 Body mass index [BMI] 50.0-59.9, adult; Z91.14 Patient's other noncompliance with medication regimen
CPT/HCPCS: 36415; 80053; 80305; 81003; 83605; 83735; 83880; 84100; 84484; 85025; 85610; 85730; 87040; 87070; 87077; 87081; 87086; 87186; 93005; 93970; 96365; 96367; 96374; 96375; 99285; G0378; J0696; J2270; J3490; J7030; J7060; Q0092

== ENCOUNTER 2017-07-30 12:25 | Emergency (ER) | payer OTHER ==
[~2017-07-30] VITALS: Ht 177.8 cm; Wt 140.6 kg
[~2017-07-30 12:25] MED LIST changes: +ACET-9529 PO; -ACET1TAB93 PO; -ASCO500T45 PO; +ASPI-1173 PO; -ASPI81CT95 PO; -CIPR250T3 PO; +CIPR500T4 PO; +GABA-638 PO; -GABA300C PO; +LACT10CA1 PO; +LAS20I PO; -NYSTRC TP; -OMEP20TC10 PO; +PANT40EC28 PO; -Therahoney Gel TP; -[UNRECOGNIZED DRUG - CODE] TP
[2017-07-30 12:44] VITALS: BP 145/101
[2017-07-30] MEDS ORDERED: KETOROLAC 60 MG/2 ML VIAL IM ONE (16:05)
[2017-07-30 16:50] VITALS: BP 116/47
== END 2017-07-30 16:50 | disposition home or self-care (01) ==
LOC: MED 12:25
DX: L03.116 Cellulitis of left lower limb (principal); L03.115 Cellulitis of right lower limb; J45.909 Unspecified asthma, uncomplicated; K21.9 Gastro-esophageal reflux disease without esophagitis; I10 Essential (primary) hypertension; Z88.1 Allergy status to other antibiotic agents
CPT/HCPCS: 81002; 96372; 99283; J1885

== ENCOUNTER 2017-08-11 23:25 | Emergency (ER) | payer OTHER ==
[~2017-08-11] VITALS: Ht 177.8 cm; Wt 145.1 kg
[2017-08-11 23:30] VITALS: BP 135/70
--- NOTE | 2017-08-11 23:45 | NUR ---
ASSUMED CARE OF PT AT THIS TIME. AAOX4; PT DENIES ANY FEVER; PATIENT STATES PAIN OF 9/10 AT THIS TIME; VSS; ER MD MADE AWARE OF PT STATUS. WILL CONTINUE TO MONITOR.
[2017-08-11] MEDS ORDERED: KETOROLAC 30 MG/ML VIAL IM ONE (23:55)
[2017-08-11] MEDS ORDERED: CEPHALEXIN 500 MG CAP PO ONE (23:55)
[2017-08-12] MEDS ORDERED: MORPHINE SULFATE 4 MG/ML SYR IM ONE (00:05)
[2017-08-12] MEDS ORDERED: MORPHINE SULFATE 4 MG/ML SYR ONE (00:07)
[2017-08-12 00:25] VITALS: BP 134/72
--- NOTE | 2017-08-12 00:25 | NUR ---
Patient discharged with v/s stable. Written and verbal after care instructions given and explained. Patient alert, oriented and verbalized understanding of instructions. Wheel Chair Assisted with by caregiver. All questions addressed prior to discharge. ID band removed. Patient advised to follow up with PMD. Rx of NAPROSYN AND KEFLEX given. Patient educated on indication of medication including possible reaction and side effects. Opportunity to ask questions provided and answered.
== END 2017-08-12 00:25 | disposition home or self-care (01) ==
LOC: MED 23:25
DX: L03.115 Cellulitis of right lower limb (principal); L03.116 Cellulitis of left lower limb; R60.0 Localized edema; J45.909 Unspecified asthma, uncomplicated; K21.9 Gastro-esophageal reflux disease without esophagitis; I10 Essential (primary) hypertension; Z88.8 Allergy status to other drugs, medicaments and biological substances; Z88.2 Allergy status to sulfonamides
CPT/HCPCS: 96372; 99284; J1885; J2270

== ENCOUNTER 2018-01-02 12:45 | Emergency (ER) | payer OTHER ==
[~2018-01-02] VITALS: Ht 177.8 cm; Wt 132.9 kg
[~2018-01-02 12:45] MED LIST changes: -AMOX-999 PO; -ATOR20TA40 PO; -CIPR500T4 PO; -FERR324T11 PO; -LACT10CA1 PO; -LAS20I PO; -PANT40EC28 PO
--- NOTE | 2018-01-02 12:50 | NUR ---
pt called, no response
[2018-01-02 12:53] VITALS: BP 107/45
--- NOTE | 2018-01-02 13:00 | NUR ---
PATIENT PRESENTS TO ED WITH BILATERAL LEG PAIN . PT STATES LEFT LEG WOUND IS INFECTED AND HAS BEEN WORSENING SINCE SEPTEMBER. LEG WRAPPED, STRONG ODOR, GREEN/YELLOW DRAINAGE SATURATING DRESSING. DENIES N/V/D; SKIN IS PINK/WARM/DRY; AAOX4 WITH EVEN AND STEADY GAIT; LUNGS CLEAR BL; HR EVEN AND REGULAR; PT DENIES ANY FEVER, CP, SOB, OR COUGH AT THIS TIME; PATIENT STATES PAIN OF 5/10 AT THIS TIME; VSS; PATIENT POSITIONED FOR COMFORT; HOB ELEVATED; BEDRAILS UP X2; BED DOWN. ER MD MADE AWARE OF PT STATUS.
--- NOTE | 2018-01-02 13:22 | NUR ---
Sofie gibbs in ED - 01/02/18 at 1323 by [facility] AT BEDSIDE
[2018-01-02] MEDS ORDERED: NEOMYCIN/POLYMYXIN/BACITRACIN 0.9 GM/1 PKT TP ONE (14:00)
[2018-01-02] MEDS ORDERED: KETOROLAC 60 MG/2 ML VIAL IM ONE (14:05)
[2018-01-02] MEDS ORDERED: CLINDAMYCIN 600 MG/4 ML VIAL IM ONE (14:05)
[2018-01-02] MEDS ORDERED: MORPHINE SULFATE 2 MG/ML SYR IM ONE (14:05)
--- NOTE | 2018-01-02 14:10 | NUR ---
WOUND CARE PROVIDED. SEE WOUND ASSESSMENT NOTES.
[2018-01-02 15:30] VITALS: BP 117/67
--- NOTE | 2018-01-02 15:30 | NUR ---
D/C PT HOME; EDUCATED PT ON NEW RX OF VISTARIL. EDUATCED PT ON REFERRALS AND S/SX OF WHEN TO CALL 911, RETURN TO THE ED AND WHEN TO CALL PCP. REVIEWED WOUND CARE. ANSWERED ALL QUESTIONS AND PT DENIED FURTHER QUESTIONS. VITALS TAKEN UPON D/C. PT AMBULATED TO EXIT WITH ALL PERSONAL ITEMS.
== END 2018-01-02 15:30 | disposition home or self-care (01) ==
LOC: MED 12:45
DX: I89.0 Lymphedema, not elsewhere classified (principal); J45.909 Unspecified asthma, uncomplicated; K21.9 Gastro-esophageal reflux disease without esophagitis; I10 Essential (primary) hypertension; Z79.82 Long term (current) use of aspirin; Z88.3 Allergy status to other anti-infective agents; Z88.2 Allergy status to sulfonamides
CPT/HCPCS: 87070; 96372; 99283; J1885; J2270; J3490

== ENCOUNTER 2018-01-24 10:30 | Emergency (ER) | payer OTHER ==
[~2018-01-24] VITALS: Ht 167.6 cm; Wt 133.9 kg
[2018-01-24 10:41] VITALS: BP 110/83
--- NOTE | 2018-01-24 10:48 | NUR ---
PT AMBULATES TO BED 11
--- NOTE | 2018-01-24 10:50 | NUR ---
37Y/M BIB SELF C/O WES LEG PAIN. AAO PT WITH C/O INTERMITTENT BL LOWER EXTREMITY PAIN X 1 WK; RUN OUT OF ALL HIS MEDS. BED DOWN, BEDRAIL UP X 1, ER MD AWARE AND NOTIFIED OF PT STATUS. HX; NEUROPATHY, ULCERS, CELLULITIS, DERMATITIS, ASTHMA, SLEEP APNEA RX; KEFLEX, NEURONTIN, IBUPROFEN
--- NOTE | 2018-01-24 10:53 | NUR ---
Patient being evaluated by physician at bedside.
[2018-01-24] MEDS ORDERED: MORPHINE SULFATE 4 MG/ML SYR IM ONE (10:55)
[2018-01-24] MEDS ORDERED: KETOROLAC 60 MG/2 ML VIAL IM ONE ×2 (10:55→11:19)
[2018-01-24] MEDS ORDERED: CLINDAMYCIN 600 MG/4 ML VIAL IM ONE (10:55)
[2018-01-24] MEDS ORDERED: CLINDAMYCIN 600 MG/4 ML VIAL ONE (11:16)
[2018-01-24] MEDS ORDERED: MORPHINE SULFATE 4 MG/ML SYR ONE (11:17)
[2018-01-24] MEDS ORDERED: KETOROLAC 30 MG/ML VIAL ONE (11:18)
--- NOTE | 2018-01-24 11:45 | NUR ---
Patient discharged with v/s stable. Written and verbal after care instructions given and explained. Patient alert, oriented and verbalized understanding of instructions. Ambulatory with steady gait. All questions addressed prior to discharge. ID band removed. Patient advised to follow up with PMD. Rx of clindamycin and neurontin given. Patient educated on indication of medication including possible reaction and side effects. Opportunity to ask questions provided and answered.
[2018-01-24 11:47] VITALS: BP 112/85
== END 2018-01-24 11:45 | disposition home or self-care (01) ==
LOC: MED 10:30
DX: I83.018 Varicose veins of right lower extremity with ulcer other part of lower leg (principal); I83.028 Varicose veins of left lower extremity with ulcer other part of lower leg; L03.116 Cellulitis of left lower limb; L03.115 Cellulitis of right lower limb; J45.909 Unspecified asthma, uncomplicated; K21.9 Gastro-esophageal reflux disease without esophagitis; I10 Essential (primary) hypertension; G62.9 Polyneuropathy, unspecified; Z88.1 Allergy status to other antibiotic agents; Z79.1 Long term (current) use of non-steroidal anti-inflammatories (NSAID)
CPT/HCPCS: 96372; 99284; J1885; J2270; J3490

== ENCOUNTER 2018-02-11 12:51 | Emergency (ER) | payer OTHER ==
[~2018-02-11] VITALS: Ht 177.8 cm; Wt 133.8 kg
[2018-02-11 13:06] VITALS: BP 126/73
[2018-02-11] MEDS ORDERED: NACL 0.9% 1,000 ML IV SCH (13:26)
[2018-02-11] MEDS ORDERED: ONDANSETRON 4 MG/2 ML VIAL IVP ONE (13:30)
[2018-02-11] MEDS ORDERED: MORPHINE SULFATE 4 MG/ML SYR IVP ONE (13:30)
[2018-02-11 15:31] LABS: BASOPHILS # (AUTO) 0.1 K/uL (0.00-0.22); EOSINOPHILS % (AUTO) 0.1 % (0.0-4.0); HEMATOCRIT 30.4 % (36-52); LYMPHOCYTES # (AUTO) 0.7 K/uL (2.0-11.5); LYMPHOCYTES % (AUTO) 6.7 % (20.5-51.1); MEAN CORPUSCULAR HEMOGLOBIN 20 pg (27-31); MEAN CORPUSCULAR HGB CONC 30 g/dL (33-37); MEAN CORPUSCULAR VOLUME 66.1 fL (80-94); MONOCYTES # (AUTO) 0.4 K/uL (0.8-1.0); MONOCYTES % (AUTO) 3.8 % (1.7-9.3); NEUTROPHILS # (AUTO) 8.8 K/uL (1.8-7.7); NEUTROPHILS % (AUTO) 88.4 % (42.2-75.2); PLATELET COUNT (AUTO) 357 K/uL (140-450); RED CELL DISTRIBUTION WIDTH 19.5 % (11.6-13.7); WHITE BLOOD COUNT (AUTO) 9.9 K/uL (4.8-10.8)
[2018-02-11 15:39] LABS: APPEARANCE,URINE CLEAR (CLEAR); BILIRUBIN,URINE NEGATIVE (NEGATIVE); BLOOD, URINE NEGATIVE (NEGATIVE); COLOR,URINE YELLOW (YELLOW); LEUKOCYTE ESTERASE ,URINE NEGATIVE (NEGATIVE); NITRITE, URINE NEGATIVE (NEGATIVE); UGLUCOSE NEGATIVE (NEGATIVE)
[2018-02-11 15:45] LABS: ANION GAP 12.5 (8-16); CARBON DIOXIDE 26.1 mmol/L (21-32); CREATININE 0.7 mg/dL (0.7-1.3); POTASSIUM 3.6 mmol/L (3.5-5.1)
[2018-02-11 15:51] LABS: ALBUMIN 3.4 g/dL (3.4-5.0); TOTAL BILIRUBIN 0.5 mg/dL (0.0-1.0)
[2018-02-11 18:56] VITALS: BP 110/46
== END 2018-02-11 18:56 | disposition short-term general hospital (02) ==
LOC: MED 12:51
DX: K43.9 Ventral hernia without obstruction or gangrene (principal); R60.0 Localized edema; J45.909 Unspecified asthma, uncomplicated; I10 Essential (primary) hypertension; G62.9 Polyneuropathy, unspecified; Z88.1 Allergy status to other antibiotic agents; Z79.1 Long term (current) use of non-steroidal anti-inflammatories (NSAID); Z79.899 Other long term (current) drug therapy
CPT/HCPCS: 36415; 74176; 80053; 81003; 83690; 85025; 96361; 96374; 96375; 99285; J2270; J2405; J7030

== ENCOUNTER 2018-06-08 21:49 | Emergency (ER) | payer OTHER ==
[~2018-06-08] VITALS: Ht 177.8 cm; Wt 115.7 kg
[2018-06-08 22:37] VITALS: BP 120/63
--- NOTE | 2018-06-09 00:21 | NUR ---
BIB WHEELCHAIR TO ER BED 6
--- NOTE | 2018-06-09 00:45 | NUR ---
PT TO ED WITH C/O BILATERAL LEG PAIN. PT DENIES INJURY OR TRAUMA. WOUNDS NOTED TO BOTTOM OF FEET. MILD SWELLING NOTED TO LEGS AND FEET. PT PLACED INTO BED, PENDING MD WALLER.
[2018-06-09] MEDS ORDERED: CLINDAMYCIN 600 MG/4 ML VIAL IM ONE (01:00)
[2018-06-09] MEDS ORDERED: KETOROLAC 60 MG/2 ML VIAL IM ONE (01:00)
[2018-06-09] MEDS ORDERED: NEOMYCIN/POLYMYXIN/BACITRACIN 0.9 GM/1 PKT TP ONE (01:25)
--- NOTE | 2018-06-09 01:48 | NUR ---
PER VERBAL ORDER FROM DR CHAPIN, PT WOUNDS ON BILATERAL LEGS COVERED IN NON ADHERENT BANDAGES AFTER BACITRACIN APPLIED, WRAPPED IN DORIS WRAPS. + CSM
[2018-06-09 02:00] VITALS: BP 120/63
--- NOTE | 2018-06-09 02:02 | NUR ---
Patient discharged with v/s stable. Written and verbal after care instructions given and explained. Patient alert, oriented and verbalized understanding of instructions. Ambulatory with steady gait. All questions addressed prior to discharge. ID band removed. Patient advised to follow up with PMD. Rx of MOTRIN, DOXYXYLINE given. Patient educated on indication of medication including possible reaction and side effects. Opportunity to ask questions provided and answered.
== END 2018-06-09 02:00 | disposition home or self-care (01) ==
LOC: MED 21:49
DX: L03.115 Cellulitis of right lower limb (principal); L03.116 Cellulitis of left lower limb; J45.909 Unspecified asthma, uncomplicated; I10 Essential (primary) hypertension; Z79.82 Long term (current) use of aspirin; Z79.899 Other long term (current) drug therapy; Z88.2 Allergy status to sulfonamides; Z88.1 Allergy status to other antibiotic agents
CPT/HCPCS: 96372; 99283; J1885; J3490

== ENCOUNTER 2019-01-29 12:45 | Emergency (ER) | payer OTHER ==
[~2019-01-29] VITALS: Ht 177.8 cm; Wt 85.7 kg
[2019-01-29 13:00] VITALS: BP 112/67
--- NOTE | 2019-01-29 13:00 | NUR ---
PATIENT AMBULATED TO BED 3.
--- NOTE | 2019-01-29 13:10 | NUR ---
aao x4 38 yr old male s/ c/o bilateral leg pain, pt has chronic wounds to both legs, states he is taking clindamycin with 2 days left but legs still pus drainage noted hx denies
[2019-01-29] MEDS ORDERED: CEPHALEXIN 500 MG CAP PO ONE (14:35)
[2019-01-29] MEDS ORDERED: BACITRACIN OINT 500 UNITS/GM PKT TP ONE ×2 (14:40→14:41)
--- NOTE | 2019-01-29 14:56 | NUR ---
PLACED BACITRACIN, XEROFORM, GAUZE, AND DORIS WRAPS ON PATIENT'S LEFT AND RIGHT LEG
--- NOTE | 2019-01-29 15:13 | NUR ---
Patient discharged with v/s stable. Written and verbal after care instructions given and explained. Patient alert, oriented and verbalized understanding of instructions. Ambulatory with steady gait. All questions addressed prior to discharge. ID band removed. Patient advised to follow up with PMD. Rx of Keflex given. Patient educated on indication of medication including possible reaction and side effects. Opportunity to ask questions provided and answered. [employer] packet given. suction worker notified per pt request will meet at the lobby per criminal justice social worker.
[2019-01-29 15:23] VITALS: BP 106/61
--- NOTE | 2019-01-29 16:04 | NUR ---
NEHA met with patient per patient's request. Patient requested room and board resources. SW provided room and board resources. NEHA also contacted [facility] [phone] who is able to [address] patients with room and boards. NEHA faxed clinicals to [phone]. NEHA spoke with patient and provided contact information for [facility] and [facility]. Patient stated he would contact [facility] and stated that he will contact [facility] between 01/29/2019 and 02/01/2019. NEHA informed [facility]. Patient verbalized appreciation. NEHA/RICKEY will follow up as needed.
== END 2019-01-29 15:13 | disposition home or self-care (01) ==
LOC: MED 12:45
DX: I83.018 Varicose veins of right lower extremity with ulcer other part of lower leg (principal); I83.028 Varicose veins of left lower extremity with ulcer other part of lower leg; J45.909 Unspecified asthma, uncomplicated; I10 Essential (primary) hypertension; Z59.0 Homelessness; Z79.82 Long term (current) use of aspirin; Z79.899 Other long term (current) drug therapy; Z88.2 Allergy status to sulfonamides; Z88.1 Allergy status to other antibiotic agents
CPT/HCPCS: 99283

== ENCOUNTER 2019-02-28 22:35 | Inpatient (IN) | payer OTHER ==
[~2019-02-28] VITALS: Ht 177.8 cm; Wt 95.3 kg
[2019-02-28 22:39] VITALS: BP 115/55
--- NOTE | 2019-03-01 01:11 | NUR ---
PT AMBULATED TO ER BED 07
--- NOTE | 2019-03-01 01:35 | NUR ---
DRESSINGS REMOVED FROM BILATERAL LOWER LEGS FOR THOROUGH ASSESSMENT. +1 PITTING EDEMA THROUGHOUT LOWER RIGHT LEG, ANKLE, FOOT. +2 PITTING EDEMA THROUGHOUT LOWER LEFT LEG, ANKLE, FOOT. SUPERFICIAL WEEPING NOTED TO RIGHT LOWER LEG. ULCERATIONS, WEEPING AND DRAINAGE NOTED TO LOWER LEFT LEG. FLAKY, CRUSTY SKIN, REDNESS AND WARMTH NOTED TO BOTH LEGS UP TO KNEE.
--- NOTE | 2019-03-01 01:43 | NUR ---
Dr. Meier examining patient.
[2019-03-01] MEDS ORDERED: NACL 0.9% 1,000 ML IV SCH (02:00)
[2019-03-01] MEDS ORDERED: KETOROLAC 30 MG/ML VIAL IVP ONE (02:00)
[2019-03-01 02:24] LABS: BASOPHILS % (AUTO) 0.3 % (0.0-2.0); EOSINOPHILS # (AUTO) 0.1 K/uL (0-0.4); EOSINOPHILS % (AUTO) 1.4 % (0.0-4.0); HEMATOCRIT 35.5 % (36-52); HEMOGLOBIN 11.2 g/dL (12.0-18.0); LYMPHOCYTES # (AUTO) 1.3 K/uL (2.0-11.5); MEAN CORPUSCULAR HEMOGLOBIN 25 pg (27-31); MEAN CORPUSCULAR HGB CONC 32 g/dL (33-37); MEAN CORPUSCULAR VOLUME 78.1 fL (80-94); MONOCYTES # (AUTO) 0.6 K/uL (0.8-1.0); MONOCYTES % (AUTO) 7.6 % (1.7-9.3); NEUTROPHILS # (AUTO) 5.6 K/uL (1.8-7.7); NEUTROPHILS % (AUTO) 73.7 % (42.2-75.2); PLATELET COUNT (AUTO) 253 K/uL (140-450); RED BLOOD CELL COUNT(AUTO) 4.55 MIL/uL (4.20-6.10); RED CELL DISTRIBUTION WIDTH 16.7 % (11.6-13.7); WHITE BLOOD COUNT (AUTO) 7.6 K/uL (4.8-10.8)
--- NOTE | 2019-03-01 02:35 | NUR ---
RECEIVED 30 MG IVP TORADOL FOR 7/10 LEFT LEG PAIN. WILL REASSESS.
[2019-03-01 02:42] LABS: ANION GAP 14.7 (8-16); CARBON DIOXIDE 25.2 mmol/L (21-32); CREATININE 0.7 mg/dL (0.7-1.3); POTASSIUM 3.9 mmol/L (3.5-5.1)
--- NOTE | 2019-03-01 02:55 | NUR ---
REPORTS 5/10 PAIN. TOLERABLE.
--- NOTE | 2019-03-01 03:08 | NUR ---
REPEATEDLY ASKED PT TO KEEP ARM STRAIGHT DUE TO POSITION OF PIV TO RIGHT AC. PT CONTINUES TO BEND ARM AND MOVE IT. IV PUMP HIGH PRESSURE ALARM GOING OFF SEVERAL TIMES.
[2019-03-01] MEDS ORDERED: BACITRACIN OINT 500 UNITS/GM PKT TP ONE (03:30)
[2019-03-01] MEDS ORDERED: VANCOMYCIN 1,000 MG in DEXTROSE 5% 250 ML IV ONE (03:30)
--- NOTE | 2019-03-01 03:30 | NUR ---
ABX RUNNING. PT TOLERATING WELL. NO S/SX DISTRESS AT THIS TIME. RESTING WITH EYES CLOSED. AROUSABLE TO VERBAL STIMULI.
[2019-03-01] MEDS ORDERED: VANCOMYCIN 1,000 MG VIAL ONE (03:37)
[2019-03-01] MEDS ORDERED: cefTRIAXone 1,000 MG VIAL ONE (03:37)
[2019-03-01] MEDS ORDERED: ONDANSETRON 4 MG/2 ML VIAL IM/IVP PRN (03:40)
[2019-03-01] MEDS ORDERED: ACETAMINOPHEN 325 MG TAB PO PRN (03:40)
[2019-03-01] MEDS ORDERED: HYDROcodone/APAP 7.5/325 MG 1 TAB PO PRN (03:40)
[2019-03-01] MEDS ORDERED: DOCUSATE SODIUM 100 MG GELCAP PO PRN (03:40)
[2019-03-01 04:09] LABS: MAGNESIUM 1.7 mg/dL (1.8-2.4); PHOSPHORUS 3.3 mg/dL (2.5-4.9); THYROID STIMULATING HORMONE 3.07 uIU/mL (0.34-3.74)
[2019-03-01] MEDS ORDERED: OMEP20TC12 PO (04:09)
[2019-03-01] MEDS ORDERED: ATA25 PO (04:09)
[2019-03-01 04:16] LABS: PROTHROMBIN TIME 10.2 secs (10.8-13.4)
[2019-03-01] MEDS ORDERED: VANCOMYCIN PER PHARMACY MC PRN (04:20)
[2019-03-01] MEDS ORDERED: MAGNESIUM OXIDE 400 MG TAB PO ONE (04:25)
[2019-03-01] MEDS ORDERED: KETOROLAC 15 MG/ML VIAL IVP PRN (04:30)
--- NOTE | 2019-03-01 04:50 | NUR ---
PHOTOS TAKEN OF BILATERAL LOWER LEGS.
--- NOTE | 2019-03-01 05:02 | NUR ---
EMT REDRESSING BILATERAL LOWER LEGS WITH GAUZE AND NON ADHERENT DRESSING.
--- NOTE | 2019-03-01 05:04 | NUR ---
Dr. Estrada examining patient.
--- NOTE | 2019-03-01 05:23 | NUR ---
Patient will be admitted to care of Dr. Barnes. Admited to MS. Will go to room 117. Belongings list completed. Report to MEÑO Blackmon.
--- NOTE | 2019-03-01 05:25 | NUR ---
PT ARRIVED AT UNIT VIA GURNEY, PT AMBULATED TO BED, TOLERATED WELL, IV TO R AC 20G PATENT INTACT, INFUSING WELL, PT ON ROOM AIR, NO SOB NOTED, ORIENT PT TO ROOM, BED AND CALL LIGHT, PT STATED UNDERSTANDING, MRSA SWAB TAKEN, V/S TAKEN.
[2019-03-01 06:12] VITALS: BP 105/66
--- NOTE | 2019-03-01 07:20 | NUR ---
ENDORSED PT TO DAY SHIFT NURSE SARAH RN, PT STABLE, NO DISTRESS NOTED, CALL LIGHT WITHIN REACH.
--- NOTE | 2019-03-01 07:22 | NUR ---
RECEIVED BEDSIDE REPORT FROM [employer] SPECIALIST NURSE FOR CONTINUITY OF CARE. PATIENT IS RESTING ON BED AT THIS TIME. AROUNSABLE TO VOICE.PATIENT IS AAOX 4. RESPIRATION EVEN AND UNLABORED ON RA. DENIED PAIN, SOB AND DIZZINESS AT THIS TIME. NO SIGNS OF DISTRESS NOTED. IV ON RAC 20G, CLEAN AND INTACT, INFUSING PER MD ORDER. BILATERAL REDNESS ON LEGS NOTED, FEATHER EDGER. PATIENT IS CONTINENT AND ABLE TO USE THE URANAL BY BEDSIDE. DISCUSSED PLAN OF CARE WITH PATIENT ANT PATIENT SAID OK. CONTACT PRECAUTION IN PLACE AND SIGN POSTED. SAFETY MEASURES IN PLACE. BED IN LOW POSITION AND CALL LIGHT WITHIN REACH. INSTRUCTED PATIENT TO USE THE CALL LIGHT FOR ANY ASSISTANCE AND PATIENT WAS AWARE.
[2019-03-01 08:00] VITALS: BP 108/46
--- NOTE | 2019-03-01 08:17 | NUR ---
PATIENT HAS BEEN SCREENED AND CATEGORIZED MODERATE NUTRITION RISK. PATIENT WILL BE SEEN WITHIN 3-5 DAYS OF ADMISSION. 03/03/19 03/05/[address]
[2019-03-01] MEDS ORDERED: hydrOXYzine HCL 25 MG TAB PO SCH (09:00)
[2019-03-01] MEDS: PANTOPRAZOLE 40 MG TABEC PO SCH (09:51)
[2019-03-01] MEDS: LACTOBACILLUS RHAMNOSUS GG 1 EACH CAP PO SCH (09:51)
[2019-03-01] MEDS: ASCORBIC ACID 500 MG TAB PO SCH (09:52)
[2019-03-01] MEDS: GABAPENTIN 300 MG CAP PO SCH ×3 (09:52→17:19)
[2019-03-01] MEDS: hydrOXYzine HCL 25 MG TAB PO SCH ×3 (09:53→17:19)
[2019-03-01] MEDS: NACL 0.9% 1,000 ML IV SCH ×3 (09:55→23:20)
--- NOTE | 2019-03-01 09:55 | NUR ---
ADMINISTERED MEDICATION. TOLERATED WELL. NO COMPLAINTS OF PAIN OR DISCOMFORT. ABLE TO MAKE NEEDS KNOWN. PATIENT AWAKE AND SITTING SUPINE IN BED. SAFETY MEASURES: HOB ELEVATED, BED IN LOWEST POSITION, AND CALL LIGHT WITHIN REACH. PATIENT EDUCATED ON HOW TO USE CALL LIGHT. WILL CONTINUE TO MONITOR.
--- NOTE | 2019-03-01 11:21 | NUR ---
PATIENT AWAKE AND RESTING ON BED AT THIS TIME. NO SIGNS OF DISTRESS NOTED. SAFETY MEASURES IN PLACE.
--- NOTE | 2019-03-01 12:48 | NUR ---
Distribution Warehouse Manager Note: Basic Screen: Yes High Risk DC Screen [place]: MELISSA Cerna Relationship: FRIEND Pre-Admission Living Arrangements: Other Other: MOTELS Prior ADL Independent Current Home Health Name/Tel: N/A Current DME/02 Name/Tel: N/A Current Hospice Name/Tel: N/A Current Dialysis Name/Tel: N/A Healthcare Decision Maker: Patient Advance Directive No - REFUSED Physician Orders for Life Sustaining Treatment Form No Patient/Family Have Educational Needs No Information Taught: Community Resources Person Taught: Patient Teaching Tools: Verbal Factors Affecting Learning: None Participation Level: Refused Evaluation: Verbalizes Understanding Needs Additional Education: No Discipline: Case Mgt/Social Svcs Tentative Discharge Plan/Destination: No Needs Identified Will require assistance post discharge: No Referred to [employer]: No Tentative Discharge Plan Summary: Patient is a 38 year old female admitted for cellulitis. Patient has PMHX of asthma, enlarged heart, GERD, chronic nerve pain, and colon cancer (in remission). Patient was admitted from home. verified demographics with patient. Patient reports living in motels and denies being homeless. patient stated that he has lived in motels for 10 years. Patient accepted homeless resources from . Patient stated she receives approximately $900 a month. Patient reports having a history of anxiety. Patient states she is medication compliant. Patient reports no history of substance abuse. Patient's tentative plan after discharge is to return to a motel. No further needs identified. Signature: RISHABH Rossi Date: Mar 01, 2019 Time: 12:47
--- NOTE | 2019-03-01 13:45 | NUR ---
PATIENT IS RESTING ON BED AT THIS TIME. NO SIGNS OF DISTRESS NOTED. SAFETY MEASURES IN PLACE.
--- NOTE | 2019-03-01 14:04 | NUR ---
ADMINISTERED MEDICATION PER MD ORDER. TOLERATED WELL. PATIENT AWAKE IN BED. SAFETY MEASURES: HOB ELEVATED, BED IN LOWEST POSITION, AND CALL LIGHT WITHIN REACH.
--- NOTE | 2019-03-01 15:34 | NUR ---
WOUND CARE EVALUATION REASON FOR EVALUATION:BLE CELLULITIS COMPLETE SKIN ASSESSMENT DONE ON THIS 38 Y/O MALE PATIENT ADMITTED TO [facility], WITH INITIAL DIAGNOSIS OF BLE PAIN, CELLULITIS. PAST MEDICAL HISTORY INCLUDE GERD, NEUROPATHY PAIN, HX OF IRON DEFICIENCY ANEMIA AND ANXIETY DISORDER. ALL ABOVE INFORMATION WAS OBTAINED FROM THE ADMISSION H&P. PATIENT IS AAX4, SKIN IS WARM TO TOUCH WNL, TOENAILS ARE LONG AND THICKENED, LLE +2 EDEMA, NO HAIR GROWTH, BLE ARE DRY AND FLAKY, PEDAL PULSES PRESENT. PLAN OF CARE DISCUSSED WITH PT. PT. REFUSED UNNA BOOT TO BE APPLIED FROM TOE TO BELOW KNEE, RISKS AND BENEFITS EXPLAINED PT. REFUSED DR. MCCOY AND PRIMARY RN. NOTIFIED. RECOMMENDATION DISCUSSED WITH DR. MCCOY AND PT. PT AGREE WITH IT AND ABLE TO VERBALIZE UNDERSTANDING. INTEGUMENTARY: -RLE LATERAL ASPECT CELLULITIS - 8X6X0.1CM, WOUND BED IS PINK, MOIST NO ODOR, SURROUNDING SKIN DRY FLAKY WITH ERYTHEMA PAIN 2/10 -LLE MEDIAL ANKLE CELLULITIS- 12CM X15CM 8X6X0.1CM, WOUND BED IS PINK, MOIST NO ODOR, SURROUNDING SKIN DRY FLAKY WITH ERYTHEMA +2 EDEMA, PAIN 2/10 RECOMMENDATIONS: -CLEANSE BLE CELLULITIS WITH NS, PAT DRY AND APPLY XEROFORM DRESSING AND WRAP WIT KERLIX ROLLS LOOSELY QM-W-F AND PRN IF SOILING -OFFLOAD BILATERAL HEELS BY PLACING PILLOWS UNDER CALVES AT ALL TIMES, UNLESS OTHERWISE CONTRAINDICATED -KEEP SKIN CLEAN AND DRY AT ALL TIMES. RECOMMENDATIONS DISCUSSED WITH PRIMARY RN AND DR. MCCOY PLEASE CONTACT WOUND CARE NURSE FOR ANY CONCERNS, QUESTIONS AND CHANGES IN WOUND CONDITION.
[2019-03-01 16:00] VITALS: BP 100/53
--- NOTE | 2019-03-01 16:02 | NUR ---
DC PLANNING 38 YRS OLD MALE PT WAS ADMITTED FROM HOME WITH A DX OF CELLULITIS. PT HAS A HX OF ASTHMA GERD COLON CA IN REMISSION AND CHRONIC NERVE PAIN.ADMINISTERED IVF NS, ROCEPHIN AND VANCOMYCIN . WOUND CULTURE AND PODIATRY CONSULT. CM TO FOLLOW Addendum: 03/02/19 at 1148 by Susan Worthy CM DC PLANNING : CONTINUE ROCEPHIN IVPB , ENVIRONMENTAL HEALTH AND SAFETY INTERN SEEN PATIENT RECOMMENDED UNNA BOOT TO BE PLACED BY WOUND NURSE , BUT PT REFUSED. WOUND CARE NURSE EVALUATE PATIENT AND RECOMMENDATIONS DISCUSSED WITH PRIMARY NURSE. DC PLAN TO GO TO SNF FOR WOUND CARE. CM TO FOLLOW Addendum: 03/02/19 at 1403 by Bessy Ritchie CM TENTATIVE DC PLAN TO SNF FOR WOUND CARE OF BLE. MET WITH THE PATIENT AT THE BEDSIDE TO DISCUSS DC PLANNING. PATIENT IS AGREEABLE TO THE PLAN. HE STATED THAT HE DOES NOT HAVE A PERMANENT HOME, SOMETIMES IN [place] AND SOMETIMES IN [place] CLOSE TO THE BUS STATION. I INQUIRED IF WHAT IS HIS PLAN AFTER SNF, HE STATED THAT IF THEY CAN HELP HIM FIND A PLACE TO STAY THAT WILL BE HELPFUL. HE ALSO STATED THAT HE DOES NOT HAVE ANY PREFERENCE FOR THE [facility] "ANYWHERE YOU CAN FIND." INQUIRIES FAXED TO [facility], [facility] AND [facility]. WILL FOLLOW UP. Addendum: 03/02/19 at 1534 by Bessy Ritchie CONTACTED [facility] AT [phone], ABLE TO SPEAK TO AVEL. SHE STATED THEY ARE REVIEWING THE REFERRAL. SHE ALSO STATED THAT THEY RAN PATIENT'S ELIGIBILITY AND PATIENT HAS ZERO SNF DAYS AND NO SECONDARY INSURANCE. MET WITH THE PATIENT AGAIN AT THE BEDSIDE, I ASKED HIM IF HE WAS IN A SNF BEFORE. HE STATED HE IS HOMELESS FOR 2 1/2 MONTHS. HE ALSO STATED THAT HE FORGOT TO MENTION EARLIER THAT HE WAS AT [place] FOR A MONTH AND A HALF. HE ALSO STATED THAT HE DO NOT WANT [facility] AND PREFERS TO GO BACK TO [place]. CONTACTED [place] AT [phone], ABLE TO SPEAK TO NICHOLAS MANZO. SHE STATED SHE IS NOT FAMILIAR OF THE PATIENT'S NAME, BUT GO AHEAD AND FAX REFERRAL TO [phone]. REFERRAL SENT TO THE PROVIDED NUMBER. Addendum: 03/03/19 at 0839 by Bessy Ritchie CONTACTED [facility] AT [phone], ABLE TO SPEAK TO NICHOLAS MANZO. SHE STATED SHE WILL TRANSFER ME TO [facility]. ABLE TO SPEAK TO [facility], SHE STATED SHE WILL REVIEW THE REFERRAL AND WILL GIVE ME A CALL. PROVIDED HER WITH MY CONTACT INFO. Addendum: 03/03/19 at 1002 by Bessy Ritchie CONTACTED [facility] AT [phone], ABLE TO SPEAK TO CLAYTON (DINING ROOM HOSTESS) REGARDING INQUIRY. SHE PROVIDED ME WITH FAX NUMBER [phone] TO SEND REFERRAL. REFERRAL SENT TO THE PROVIDED NUMBER. Addendum: 03/03/19 at 1055 by Bessy Ritchie CM RECEIVED A CALL FROM [facility] ([facility]), SHE STATED SHE WILL REVIEW REFERRAL. Addendum: 03/03/19 at 1105 by Bessy Ritchie CM PER [facility], THEY ARE ABLE TO ACCEPT THE PATIENT. WILL FOLLOW UP WITH HER FOR ROOM NUMBER AND SHE ALSO STATED THEY CAN ARRANGE TRANSPORT FOR TOMORROW. DR. VIDAL MADE AWARE. Addendum: 03/03/19 at 1115 by Bessy Ritchie CM MET WITH THE PATIENT AT THE BEDSIDE TO INFORM HIM THAT [facility] ACCEPTED HIM. HE AGREED BY SAYING "OK". I ALSO ASKED HIM IF HE HAS ANY INCOME. HE STATED HE RECEIVES $900/MO FROM [facility]. Addendum: 03/04/19 at 0856 by Bessy Ritchie CM CONTACTED [facility], ABLE TO SPEAK TO CLAYTON REGARDING ROOM NUMBER AND ACCEPTING PHYSICIAN. SHE STATED THAT [facility] ([facility]MISS[facility]) IS NOT IN UNTIL 0930. PROVIDED HER MY MY CONTACT INFO FOR [facility] TO CALL BACK. Addendum: 03/04/19 at 1136 by Bessy Ritchie CM RECEIVED A CALL FROM [facility] OF [address], SHE STATED WILL BE GOING TO ROOM 109B. TRANSPORT WAS ARRANGED WITH THE FACILITY, SIGNAL MAINTENANCE TECHNICIAN WILL BE AT 1400. SHE STATED SHE WILL CALL ME BACK FOR THE TRANSPORTATION COMPANY. Addendum: 03/04/19 at 1139 by Bessy Ritchie CM PER [facility], TRANSPORT WILL BE WITH [facility]. Addendum: 03/04/19 at 1142 by Bessy Ritchie CM PRIMARY TRAVIS BRIGHT AND DR VIDAL MADE AWARE.
--- NOTE | 2019-03-01 16:30 | NUR ---
ADMINISTERED MEDICATIONS ORDERED PER MD. RIGHT AC IV SITE INFILTRATED. NEW IV INSERTED IN RIGHT WRIST 22 GAUGE. IV SITE HAS BLOOD RETURN AND FLUSHES WITHOUT COMPLICATIONS. IV SITE IS CLEAN, DRY, AND INTACT. SAFETY MEASURES: BED IN LOWEST POSITION, HOV ELEVATED, AND CALL LIGHT WITHIN REACH.
[2019-03-01] MEDS: VANCOMYCIN 1,500 MG in DEXTROSE 5% 500 ML IV SCH (16:31)
--- NOTE | 2019-03-01 16:31 | NUR ---
ADMINISTERED MED VIA IVPB PER MD ORDER, MED EDUCATION PROVIDED TO PATIENT AND PATIENT TOLERATED WELL. PATIENT IS RESTING ON BED AT THIS TIME. NO SIGNS OF DISTRESS NOTED. SAFETY MEASURES IN PLACE.
--- NOTE | 2019-03-01 17:38 | NUR ---
IV INFILTRATED AND DC IV. CANNULA INTACT. STARTED IV ON R WRIST 22, CONTINUE INFUSING PER MD ORDER. PATIENT IS RESTING ON BED AT THIS TIME. NO SIGNS OF DISTRESS NOTED. SAFETY MEASURES IN PLACE.
--- NOTE | 2019-03-01 17:45 | NUR ---
PATIENT IS AWAKE AND TALKING TO DAUGHTER CHRIS AT BEDSIDE. DENIED PAIN, SOB, AND DIZZINESS. NO SIGNS OF DISTRESS NOTED. SAFETY MEASURES IN PLACE. BED ALARM ACTIVATED. Addendum: 03/01/19 at 1823 by Crystal Lyons RN WRONG PATIENT
--- NOTE | 2019-03-01 19:13 | NUR ---
RECIEVED PT AAOX4 ,NID ,IV SITE INTACT AND PATENT , DENIES ANY PAIN AT THIS TIME , WITH BOTH L;OWER LEGS DRESSING - DRY AND INTACT . PLAN OF CARE DISCUSSED AND VERBALIZE UNDERSTANDING - CALL LIGHT WITHIN REACH . ON SAFETY / FALL PRECAUTION PROTOCOL . WILL CONT. TO MONITOR.
--- NOTE | 2019-03-01 19:13 | NUR ---
ENDORSED TO NIGHTSHIFT NURSE. PATIENT IS STABLE IN CONDITION AND ASLEEP IN BED. AROUSAL TO VOICE.
[2019-03-01 20:00] VITALS: BP 100/60
--- NOTE | 2019-03-02 | NUR ---
MADE ROUNDS . NO SIGNS OF ACUTE DISTRESS NOTED AT THIS TIME - WILL CONT.TO MONITOR.
--- NOTE | 2019-03-02 02:00 | NUR ---
SLEEPING . CHEST RISE AND FALL EQUALLY . WILL CONT. TO MONITOR.
--- NOTE | 2019-03-02 04:00 | NUR ---
MADE ROUNDS . NO SIGNS OF ACUTE DISTRESS NOTED AT THIS TIME .
[2019-03-02] MEDS: VANCOMYCIN 1,500 MG in DEXTROSE 5% 500 ML IV SCH ×2 (05:05→16:42)
[2019-03-02 05:31] LABS: APPEARANCE,URINE CLEAR (CLEAR); BILIRUBIN,URINE NEGATIVE (NEGATIVE); BLOOD, URINE NEGATIVE (NEGATIVE); COLOR,URINE YELLOW (YELLOW); LEUKOCYTE ESTERASE ,URINE NEGATIVE (NEGATIVE); NITRITE, URINE NEGATIVE (NEGATIVE); UGLUCOSE NEGATIVE (NEGATIVE)
[2019-03-02 06:00] VITALS: BP 100/60
[2019-03-02] MEDS ORDERED: SODIUM FERRIC GLUCONATE 125 MG in NACL 0.9% 100 ML IV SCH ×2 (06:20→09:00)
--- NOTE | 2019-03-02 07:05 | NUR ---
RECEIVED REPORT FROM NIGHTSHIFT. PATIENT IS ASLEEP IN BED AND IN STABLE CONDITION UPON ARRIVAL. ABLE TO MAKE NEEDS KNOWN. NO COMPLAINTS OF PAIN OR DISCOMFORT AT THIS TIME. RESPIRATIONS EVEN AND UNLABORED WITH NO SOB OR RESPIRATORY DISTRESS. SKIN WARM AND DRY TO TOUCH. SAFETY MEASURES: HOB ELEVATED. BED IN LOWEST POSITION, AND CALL LIGHT WITHIN REACH.
[2019-03-02 07:20] LABS: BASOPHILS % (AUTO) 0.5 % (0.0-2.0); EOSINOPHILS # (AUTO) 0.1 K/uL (0-0.4); EOSINOPHILS % (AUTO) 1.4 % (0.0-4.0); HEMATOCRIT 35.6 % (36-52); HEMOGLOBIN 11.2 g/dL (12.0-18.0); LYMPHOCYTES # (AUTO) 0.9 K/uL (2.0-11.5); MEAN CORPUSCULAR HEMOGLOBIN 25 pg (27-31); MEAN CORPUSCULAR HGB CONC 32 g/dL (33-37); MEAN CORPUSCULAR VOLUME 78.4 fL (80-94); MONOCYTES # (AUTO) 0.4 K/uL (0.8-1.0); MONOCYTES % (AUTO) 7.3 % (1.7-9.3); NEUTROPHILS # (AUTO) 4.4 K/uL (1.8-7.7); NEUTROPHILS % (AUTO) 74.8 % (42.2-75.2); PLATELET COUNT (AUTO) 216 K/uL (140-450); RED BLOOD CELL COUNT(AUTO) 4.54 MIL/uL (4.20-6.10); RED CELL DISTRIBUTION WIDTH 16.5 % (11.6-13.7); WHITE BLOOD COUNT (AUTO) 5.8 K/uL (4.8-10.8)
--- NOTE | 2019-03-02 07:20 | NUR ---
ENDORSED TO AM SHIFT WITH STABLE CONDITION.- PT SIGNED FOR DISCLOSURE OF INFO TO RETRIEVED OLD RECORDS FRM. HERNANDEZ.
[2019-03-02 07:38] LABS: ANION GAP 12.3 (8-16); CARBON DIOXIDE 25.7 mmol/L (21-32); CREATININE 0.7 mg/dL (0.7-1.3)
[2019-03-02 07:42] LABS: MAGNESIUM 1.8 mg/dL (1.8-2.4)
[2019-03-02 08:00] VITALS: BP 93/53
--- NOTE | 2019-03-02 09:30 | NUR ---
PATIENT IN BED WATCHING TV. ABLE TO MAKE NEEDS KNOWN. VITAL SIGNS STABLE. NO SIGNS OF DISTRESS OR SOB. FREQUENT CHECKS MADE
[2019-03-02] MEDS: FERROUS SULFATE 325 MG TABEC PO SCH (10:11)
[2019-03-02] MEDS: ASCORBIC ACID 500 MG TAB PO SCH (10:12)
[2019-03-02] MEDS: LACTOBACILLUS RHAMNOSUS GG 1 EACH CAP PO SCH (10:12)
[2019-03-02] MEDS: GABAPENTIN 300 MG CAP PO SCH ×3 (10:12→16:45)
[2019-03-02] MEDS: PANTOPRAZOLE 40 MG TABEC PO SCH (10:13)
[2019-03-02] MEDS: hydrOXYzine HCL 25 MG TAB PO SCH ×3 (10:13→16:45)
--- NOTE | 2019-03-02 10:21 | NUR ---
ADMINISTERED MEDICATIONS PRESCRIBED BY MD. PT SITTING ON THE CHAIR NEXT TO THE BED, ABLE TO MAKE NEEDS KNOWN. TOLERATED MEDS. PT IN STABLE CONDITION
[2019-03-02] MEDS: MORPHINE SULFATE 2 MG/ML SYR IVP PRN ×2 (11:37→21:53)
--- NOTE | 2019-03-02 11:37 | NUR ---
PT COMPLAINED OF 7/10 PAIN ON HIS LEGS. PT STATED THAT THE PAIN FELT STABBING AND SHARP. REPOSITIONED PATIENT AND IT DID NOT RELIEVE THE PAIN. MEDICATED PATIENT WITH PRN MORPHINE VIA IV PUSH PER MD ORDER. MEDICATION EDUCATION GIVEN TO PATIENT. PATIENT VERBALIZED UNDERSTANDING.PT IS SITTING IN CHAIR RESTING. NO SIGNS OF DISTRESS NOTED. PT INSTRUCTED TO USE CALL LIGHT FOR ANY ASSISTANCE.
--- NOTE | 2019-03-02 13:47 | NUR ---
PERFORMED WOUND CARE. NSS APPLIED TO BOTH LEGS. PAT DRY WITH GAUZE. APPLIED XEROFORM AND SECURED WITH KERLIX. PATIENT TOLERATED WELL. WOUND CARE EDUCATION PROVIDED TO PATIENT. PATIENT ABLE TO VERBALIZE UNDERSTANDING. PT IS SITTING IN THE CHAIR AT THIS TIME. NO SIGNS OF DISTRESS. SAFETY MEASURES IN PLACE. CALL LIGHT WITHIN REACH. INSTRUCTED TO USE CALL LIGHT FOR ANY ASSISTANCE. VERBALIZED UNDERSTANDING.
[2019-03-02 14:00] VITALS: BP 103/59
[2019-03-02] MEDS: NACL 0.9% 1,000 ML IV SCH ×2 (14:10→19:40)
[2019-03-02] MEDS: GAUZE TP SCH (14:11)
--- NOTE | 2019-03-02 14:11 | NUR ---
ADMINISTERED MEDICATION PRESCRIBED BY MD. PT EDUCATED ON MEDICATION ADMINISTRATION. ABLE TO VERBALIZE BACK. PT SITTING IN CHAIR RELAXING. PT IN STABLE CONDITION. SAFETY MEASURES: CALL LIGHT WITHIN REACH
--- NOTE | 2019-03-02 15:31 | NUR ---
PATIENT IS AWAKE AND RESTING. RESPONSIVE TO VOCAL STIMULI. ABLE TO MAKE NEEDS KNOWN. NO SIGNS AND SYMPTOMS OF DISTRESS. EDUCATED PATIENT ON USING THE CALL LIGHT FOR ASSISTANCE.
--- NOTE | 2019-03-02 16:51 | NUR ---
ADMINISTERED MEDICATION ORDERED PER MD. PATIENT TOLERATED WELL. MEDICATION ADMINISTRATION WAS PERFORMED AND PATIENT WAS ABLE TO VERBALIZE THE TEACHING. PT IS RESTING IN BED. NO COMPLAINTS OR CONCERNS AT THIS TIME
--- NOTE | 2019-03-02 17:29 | NUR ---
PATIENT IS LAYING IN BED ASLEEP. AROUSABLE TO VERBAL AND TACTILE STIMULI. ABLE TO MAKE NEEDS KNOWN. NO COMPLAINTS OF PAIN OR DISCOMFORT AT THIS TIME.
[2019-03-02 18:48] LABS: BARBITURATE, URINE NEG. ng/ml (NEG <=200); BENZODIAZEPINE, URINE NEG. ng/mL (NEG <=200); CANNABINOID, URINE NEG. ng/mL (NEG <=50); COCAINE, URINE NEG. ng/mL (NEG <=300); OPIATE, URINE NEG. ng/mL (NEG <=2000); PHENCYCLIDINE SCREEN,URINE NEG. ng/mL (NEG <=25)
--- NOTE | 2019-03-02 19:16 | NUR ---
ENDORSED TO NIGHTSHIFT AT BEDSIDE. PATIENT ASLEEP IN BED. ABLE TO MAKE NEEDS KNOWN. NO COMPLAINTS OR CONCERNS AT THIS MOMENT. PATIENT IS STABLE.
--- NOTE | 2019-03-02 19:17 | NUR ---
RECEIVED BEDSIDE REPORT FROM AM SHIFT NURSE. PT IS LYING IN BED WITH EYES CLOSED. NO SOB OR DISTRESS NOTED. IV ACCESS NOTED ON RIGHT WRIST 22 GAUGE, PATENT AND INFUSING WELL. NOTED WITH DRESSING ON BOTH FEET. DRY AND INTACT. INITIAL ASSESSMENT DONE. CALL LIGHT WITHIN PATIENT REACH. BOARD UPDATED. WILL CONTINUE TO MONITOR PATIENT.
[2019-03-02 20:10] VITALS: BP 85/31
--- NOTE | 2019-03-02 22:00 | NUR ---
ROUNDS DONE. VISIBLE CHEST RISE AND FALL NOTED. WILL CONTINUE TO MONITOR PATIENT.
--- NOTE | 2019-03-03 01:34 | NUR ---
PT BEDDING CHANGED WITH CNAs DUE TO SPILLING HIS URINAL ON HIS BED. PT REFUSED WOUND ASSESSMENT AND DRESSING CHANGE. PT ANGRILY STATES TO "LET HIM SLEEP, THEY CAN CHANGE IT IN THE MORNING."
--- NOTE | 2019-03-03 03:24 | NUR ---
IV ANTIBIOTIC ROCEPHIN STARTED AT THIS TIME. WILL CONTINUE TO MONITOR PATIENT.
[2019-03-03] MEDS: VANCOMYCIN 1,500 MG in DEXTROSE 5% 500 ML IV SCH ×2 (04:10→16:18)
--- NOTE | 2019-03-03 04:10 | NUR ---
IV ANTIBIOTIC VANCOMYCIN STARTED AT THIS TIME. WILL CONTINUE TO MONITOR PATIENT.
[2019-03-03] MEDS: NACL 0.9% 1,000 ML IV SCH ×2 (05:00→12:44)
--- NOTE | 2019-03-03 06:50 | NUR ---
PATIENT IN STABLE CONDITION. WILL ENDORSE TO AM SHIFT NURSE FOR CONTINUITY OF CARE.
--- NOTE | 2019-03-03 07:10 | NUR ---
RECEIVED REPORT FROM CIRCLE SAW OPERATOR NURSE. PT AAOX4, NO C/O PAIN. RESPIRATIONS EVEN AND UNLABORED ON RA. IV ON RT WRIST 20 GA RUNNING IVF PER ORDER. ABD SOFT, ACTIVE BS. PT DX CELLULITIS, WOUND DRESSINGS INTACT ON BILATERAL ANKLES, SKIN IS WARM TO TOUCH. PT IS ON FALL RISK PRECAUTIONS, SAFETY MEASURES IN PLACE, CALL LIGHT WITHIN REACH. REVIEWED POC WITH PT, PT WILL NEED REINFORCEMENT.
[2019-03-03 07:57] LABS: BASOPHILS % (AUTO) 0.6 % (0.0-2.0); EOSINOPHILS # (AUTO) 0.1 K/uL (0-0.4); EOSINOPHILS % (AUTO) 2.4 % (0.0-4.0); HEMATOCRIT 37.3 % (36-52); HEMOGLOBIN 11.6 g/dL (12.0-18.0); LYMPHOCYTES # (AUTO) 1.1 K/uL (2.0-11.5); LYMPHOCYTES % (AUTO) 18.8 % (20.5-51.1); MEAN CORPUSCULAR HEMOGLOBIN 25 pg (27-31); MEAN CORPUSCULAR HGB CONC 31 g/dL (33-37); MEAN CORPUSCULAR VOLUME 78.8 fL (80-94); MONOCYTES # (AUTO) 0.4 K/uL (0.8-1.0); MONOCYTES % (AUTO) 7.2 % (1.7-9.3); NEUTROPHILS # (AUTO) 4.2 K/uL (1.8-7.7); PLATELET COUNT (AUTO) 215 K/uL (140-450); RED BLOOD CELL COUNT(AUTO) 4.73 MIL/uL (4.20-6.10); RED CELL DISTRIBUTION WIDTH 16.8 % (11.6-13.7); WHITE BLOOD COUNT (AUTO) 5.9 K/uL (4.8-10.8)
[2019-03-03 08:00] VITALS: BP 94/37
[2019-03-03 08:19] LABS: ANION GAP 12.9 (8-16); CREATININE 0.7 mg/dL (0.7-1.3); POTASSIUM 3.9 mmol/L (3.5-5.1)
[2019-03-03 08:28] LABS: MAGNESIUM 1.8 mg/dL (1.8-2.4); PHOSPHORUS 3.3 mg/dL (2.5-4.9)
[2019-03-03] MEDS: LACTOBACILLUS RHAMNOSUS GG 1 EACH CAP PO SCH (08:37)
[2019-03-03] MEDS: GABAPENTIN 300 MG CAP PO SCH ×3 (08:37→16:18)
[2019-03-03] MEDS: FERROUS SULFATE 325 MG TABEC PO SCH (08:37)
[2019-03-03] MEDS: hydrOXYzine HCL 25 MG TAB PO SCH ×3 (08:38→16:18)
[2019-03-03] MEDS: ASCORBIC ACID 500 MG TAB PO SCH (08:38)
[2019-03-03] MEDS: PANTOPRAZOLE 40 MG TABEC PO SCH (08:38)
--- NOTE | 2019-03-03 08:38 | NUR ---
ADMINISTERED MEDICATIONS PER ORDER, PT IS AWARE OF INDICATIONS AND POTENTIAL SIDE EFFECTS.
--- NOTE | 2019-03-03 10:30 | NUR ---
PT'S LINENS CHANGED, PROVIDED WITH CLEAN GOWN. PT HAS NO SIGNS OF DISTRESS OR C/O PAIN AT THIS TIME.
--- NOTE | 2019-03-03 12:44 | NUR ---
STARTED NEW BAG OF IVF PER ORDER. PT HAS NO SIGNS OF DISTRESS AT THIS TIME, SITTING UP IN CHAIR WITH RESPIRATIONS EVEN AND UNLABORED ON RA.
[2019-03-03] MEDS ORDERED: GAUZE TP SCH (13:00)
[2019-03-03] MEDS: GAUZE TP SCH (13:00)
[2019-03-03] MEDS ORDERED: KETOROLAC 30 MG/ML VIAL IVP PRN (13:45)
[2019-03-03] MEDS ORDERED: HYDROcodone/APAP 10/325 MG 1 TAB TAB PO PRN (13:45)
[2019-03-03] MEDS ORDERED: FER325 PO (13:57)
[2019-03-03] MEDS ORDERED: VITC500 PO (13:57)
[2019-03-03] MEDS ORDERED: NORC10 PO (13:57)
[2019-03-03] MEDS ORDERED: MORP2SOL18 IVP (13:57)
[2019-03-03] MEDS ORDERED: TOR30I IVP (13:57)
--- NOTE | 2019-03-03 14:00 | NUR ---
DRESSINGS TO BILATERAL ANKLES CHANGED PER ORDER, PT HAS NO C/O PAIN AT THIS TIME. PT TOLERATED WELL.
[2019-03-03 16:00] VITALS: BP 90/55
--- NOTE | 2019-03-03 16:05 | NUR ---
VERIFIED WITH PHARMACIST THAT 03/03 VANCO TROUGH OF 11.2 IS VALID FOR VANCO DOSE AT 1600.
--- NOTE | 2019-03-03 18:10 | NUR ---
PT RESTING IN BED IN SUPINE POSITION. PT HAS NO SIGNS OF DISTRESS AT THIS TIME.
--- NOTE | 2019-03-03 19:30 | NUR ---
ENDORSED PT TO PUBLIC RECORDS RESEARCHER NURSE JANI. PT HAS NO SIGNS OF DISTRESS AT THIS TIME.
--- NOTE | 2019-03-03 19:31 | NUR ---
RECEIVED BEDSIDE REPORT FROM AM SHIFT NURSE. PT IS LYING IN BED ASLEEP. NO SOB OR DISTRESS NOTED. IV ACCESS NOTED ON RIGHT WRIST 20 GAUGE. PATENT AND INFUSING WELL. NOTED WITH WOUND DRESSING ON BILATERAL LOWER EXTREMITIES. PT IS FALL RISK, BED IN LOW. SAFETY MEASURES IN PLACE. BOARD UPDATED. INITIAL ASSESSMENT DONE. CALL LIGHT WITHIN PATIENT REACH.
--- NOTE | 2019-03-03 21:05 | NUR ---
ROUNDS DONE AT THIS TIME. VISIBLE CHEST RISE AND FALL NOTED. WILL CONTINUE TO MONITOR PATIENT.
--- NOTE | 2019-03-04 00:02 | NUR ---
PT REFUSED VITAL SIGNS TAKING AT THIS TIME. HE STATED "LET ME SLEEP, GO AWAY." NO SOB OR DISTRESS. WILL CONTINUE TO MONITOR PATIENT.
[2019-03-04] MEDS: NACL 0.9% 1,000 ML IV SCH ×2 (02:02→11:40)
--- NOTE | 2019-03-04 02:36 | NUR ---
IV ANTIBIOTIC ROCEPHIN GIVEN AT THIS TIME. WILL CONTINUE TO MONITOR PATIENT.
--- NOTE | 2019-03-04 04:10 | NUR ---
ROUNDS DONE AT THIS TIME. VISIBLE CHEST RISE AND FALL NOTED. WILL CONTINUE TO MONITOR PATIENT.
[2019-03-04 06:56] LABS: BASOPHILS % (AUTO) 0.4 % (0.0-2.0); EOSINOPHILS # (AUTO) 0.2 K/uL (0-0.4); EOSINOPHILS % (AUTO) 2.8 % (0.0-4.0); HEMATOCRIT 38.4 % (36-52); HEMOGLOBIN 12.1 g/dL (12.0-18.0); LYMPHOCYTES # (AUTO) 0.9 K/uL (2.0-11.5); LYMPHOCYTES % (AUTO) 17.3 % (20.5-51.1); MEAN CORPUSCULAR HEMOGLOBIN 25 pg (27-31); MEAN CORPUSCULAR HGB CONC 31 g/dL (33-37); MONOCYTES # (AUTO) 0.4 K/uL (0.8-1.0); MONOCYTES % (AUTO) 7.6 % (1.7-9.3); NEUTROPHILS # (AUTO) 3.8 K/uL (1.8-7.7); NEUTROPHILS % (AUTO) 71.9 % (42.2-75.2); PLATELET COUNT (AUTO) 209 K/uL (140-450); RED BLOOD CELL COUNT(AUTO) 4.93 MIL/uL (4.20-6.10); RED CELL DISTRIBUTION WIDTH 16.7 % (11.6-13.7); WHITE BLOOD COUNT (AUTO) 5.3 K/uL (4.8-10.8)
--- NOTE | 2019-03-04 06:59 | NUR ---
PT IN STABLE CONDITION. CALL LIGHT WITHIN PATIENT REACH. WILL ENDORSE TO AM SHIFT NURSE FOR CONTINUITY OF CARE.
[2019-03-04 07:07] LABS: MAGNESIUM 1.7 mg/dL (1.8-2.4); PHOSPHORUS 3.4 mg/dL (2.5-4.9)
[2019-03-04 07:09] LABS: ANION GAP 12.9 (8-16); CARBON DIOXIDE 26.3 mmol/L (21-32); CREATININE 0.6 mg/dL (0.7-1.3); POTASSIUM 4.2 mmol/L (3.5-5.1)
--- NOTE | 2019-03-04 07:10 | NUR ---
RECEIVED REPORT FROM NIGHT RN. PATIENT IS FULL CODE, ALLERGIES TO SULFAMETHOXAZOLE AND TRIMETHOPRIM. AAOX4, ROOM AIR. SKIN IS INTACT OTHER THAN CELLULITIS TO BILAT LOWER EXTREMITIES. PT HAS AN IV TO RIGHT WRIST 22G WITH NS INFUSING AT 100ML/HR. DC ORDER PLACED FOR THE DAY, WILL F/U AND CONTINUE WITH PLAN OF CARE.
[2019-03-04 08:00] VITALS: BP 107/56
[2019-03-04] MEDS: ASCORBIC ACID 500 MG TAB PO SCH (08:56)
[2019-03-04] MEDS: LACTOBACILLUS RHAMNOSUS GG 1 EACH CAP PO SCH (08:56)
[2019-03-04] MEDS: GABAPENTIN 300 MG CAP PO SCH (08:57)
[2019-03-04] MEDS: hydrOXYzine HCL 25 MG TAB PO SCH (08:57)
[2019-03-04] MEDS: PANTOPRAZOLE 40 MG TABEC PO SCH (08:57)
[2019-03-04] MEDS: FERROUS SULFATE 325 MG TABEC PO SCH (08:57)
--- NOTE | 2019-03-04 08:59 | NUR ---
ADMINISTERED MORNING MEDICATION. ADMINISTERED NORCO FOR PAIN. VITAL SIGNS WNL PRIOR TO ADMINISTRATION. WILL RE ASSESS PAIN LEVEL.
[2019-03-04] MEDS ORDERED: CEFT1SOL1 IV (09:26)
[2019-03-04] MEDS ORDERED: MAG SULF 2000 MG/WATER PREMIX 50 ML IV SCH (10:30)
--- NOTE | 2019-03-04 10:30 | NUR ---
HUNG IV MAGNESIUM FOR MAG 1.7. PATIENT SITTING UP AT BEDSIDE EATING. NO COMPLAINTS AT THIS TIME.
--- NOTE | 2019-03-04 12:44 | NUR ---
CALLED [facility] IN [place] AND GAVE REPORT TO TYRON GAY VIA [phone]. PATIENT WILL BE DISCHARGED WITH IV LINE FOR IV ABX. PICKUP TIME SET FOR 1400 UNDER PERSONAL CARE TRANSPORTATION
--- NOTE | 2019-03-04 13:25 | NUR ---
PT SIGNED DISCHARGE PAPERWORK.
--- NOTE | 2019-03-04 13:53 | NUR ---
PATIENT REFUSED DISCHARGE PHOTOS OF BILATERAL LOWER EXTREMITIES.
--- NOTE | 2019-03-04 14:25 | NUR ---
PATIENT HAS BEEN TRANSFERRED OFF THE UNIT TO [facility].
== END 2019-03-04 14:25 | DRG 603 ==
LOC: MED 22:35 → MTU 03-01 03:43
PROVIDERS: ADMIT General Practice; ATTEND General Practice
DX: L03.116 Cellulitis of left lower limb (principal); L97.329 Non-pressure chronic ulcer of left ankle with unspecified severity; L97.319 Non-pressure chronic ulcer of right ankle with unspecified severity; L03.115 Cellulitis of right lower limb; I73.9 Peripheral vascular disease, unspecified; E83.42 Hypomagnesemia; Z88.8 Allergy status to other drugs, medicaments and biological substances; J45.909 Unspecified asthma, uncomplicated; I10 Essential (primary) hypertension; G62.9 Polyneuropathy, unspecified; K21.9 Gastro-esophageal reflux disease without esophagitis; G89.29 Other chronic pain; F41.8 Other specified anxiety disorders; I87.8 Other specified disorders of veins; D50.9 Iron deficiency anemia, unspecified
CPT/HCPCS: 36415; 71045; 73590; 73630; 80048; 80202; 80305; 81003; 82607; 82746; 83036; 83540; 83605; 83735; 83880; 84100; 84443; 84484; 85025; 85045; 85610; 85651; 85730; 86140; 87040; 87070; 87081; 87086; 87186; 93005; 93925; 93970; 96365; 96375; 97112; 97116; 97161-GP; 97530; 99285; J0696; J1885; J2270; J2916; J3370; J3475; J7030; J7060; Q0092

== ENCOUNTER 2019-05-10 21:47 | Emergency (ER) | payer OTHER ==
[~2019-05-10] VITALS: Ht 177.8 cm; Wt 90.7 kg
[~2019-05-10 21:47] MED LIST changes: -ACET-9529 PO; -ASPI-1173 PO; +ATA25 PO; +CEFT1SOL1 IV; +FER325 PO; +MORP2SOL18 IVP; +NORC10 PO; +OMEP20TC12 PO; +TOR30I IVP; +VITC500 PO
[2019-05-10 21:50] VITALS: BP 100/49
[2019-05-10] MEDS ORDERED: KETOROLAC 30 MG/ML VIAL IVP ONE (22:35)
[2019-05-10] MEDS ORDERED: ONDANSETRON 4 MG/2 ML VIAL IVP ONE (22:35)
[2019-05-10] MEDS ORDERED: NACL 0.9% 1,000 ML IV ONE (22:35)
[2019-05-10 23:01] LABS: BASOPHILS % (AUTO) 0.6 % (0.0-2.0); EOSINOPHILS % (AUTO) 0.1 % (0.0-4.0); HEMATOCRIT 38.1 % (36-52); HEMOGLOBIN 12.3 g/dL (12.0-18.0); LYMPHOCYTES # (AUTO) 0.5 K/uL (2.0-11.5); MEAN CORPUSCULAR HEMOGLOBIN 26 pg (27-31); MEAN CORPUSCULAR HGB CONC 32 g/dL (33-37); MEAN CORPUSCULAR VOLUME 81.8 fL (80-94); MONOCYTES # (AUTO) 0.3 K/uL (0.8-1.0); MONOCYTES % (AUTO) 4.1 % (1.7-9.3); NEUTROPHILS # (AUTO) 7.1 K/uL (1.8-7.7); NEUTROPHILS % (AUTO) 89.5 % (42.2-75.2); PLATELET COUNT (AUTO) 195 K/uL (140-450); RED BLOOD CELL COUNT(AUTO) 4.66 MIL/uL (4.20-6.10); RED CELL DISTRIBUTION WIDTH 18.3 % (11.6-13.7); WHITE BLOOD COUNT (AUTO) 7.9 K/uL (4.8-10.8)
[2019-05-10 23:10] LABS: ANION GAP 13.9 (8-16); CARBON DIOXIDE 26.9 mmol/L (21-32); CREATININE 0.8 mg/dL (0.7-1.3); POTASSIUM 3.8 mmol/L (3.5-5.1)
[2019-05-10 23:16] LABS: ALBUMIN 3.8 g/dL (3.4-5.0); LYMPHOCYTES % (AUTO) 5.7 % (20.5-51.1); TOTAL BILIRUBIN 0.4 mg/dL (0.0-1.0)
[2019-05-11 00:15] VITALS: BP 115/86
== END 2019-05-11 00:15 | disposition home or self-care (01) ==
LOC: MED 21:47
DX: R10.13 Epigastric pain (principal); L03.116 Cellulitis of left lower limb; J45.909 Unspecified asthma, uncomplicated; I10 Essential (primary) hypertension; G62.9 Polyneuropathy, unspecified; Z79.899 Other long term (current) drug therapy; Z88.2 Allergy status to sulfonamides; Z88.1 Allergy status to other antibiotic agents
CPT/HCPCS: 36415; 73610; 74176; 80053; 83605; 83690; 83880; 85025; 87040; 96361; 96374; 96375; 99284; J1885; J2405; J7030

== ENCOUNTER 2019-06-29 21:40 | Emergency (ER) | payer OTHER ==
[~2019-06-29] VITALS: Ht 177.8 cm; Wt 90.7 kg
[2019-06-29 21:52] VITALS: BP 119/67
--- NOTE | 2019-06-29 22:25 | NUR ---
PT AMBULATED TO BED 12 WITH STEADY GAIT.
--- NOTE | 2019-06-29 22:25 | NUR ---
PT 39 Y/O MALE BIB SELF FOR C/O BILATERAL LEG PAIN AND CHEST PAIN. PT AAO X4. PT ON MONITOR. VSS. PT STATES HE HAS 4/10 SUBSTERNAL CHEST PAIN NON-RADIATING. "I DON'T KNOW IF ITS REAL CHEST PAIN OR JUST MY ANXIETY." PT NOTED WITH REDNESS AND PITTING EDEMA +2. PT STATES PAIN IN BILAT LEGS ARE 8/10. PT NOTED WITH MULTIPLE OPEN WOUNDS WITH PURLUENT DRAINAGE. WOUNDS ARE MALODORUS. CAP REFILL <3. BED LOCKED AND IN LOWEST POSITION. MEDHX: HTN, ASTHMA, NEUROPATHY ALLERGIES: BACTRIUM, SULFA.
--- NOTE | 2019-06-29 22:40 | NUR ---
EKG BEING DONE AT BEDSIDE.
--- NOTE | 2019-06-29 23:16 | NUR ---
DR CARPENTER EXAMINING PT
--- NOTE | 2019-06-30 00:12 | NUR ---
WOUND CARE BEING DONE AT BEDSIDE.
[2019-06-30 00:30] VITALS: BP 109/87
--- NOTE | 2019-06-30 00:30 | NUR ---
Patient discharged with v/s stable. Written and verbal after care instructions given and explained. Patient alert, oriented and verbalized understanding of instructions. Ambulatory with steady gait. All questions addressed prior to discharge. ID band removed. Patient advised to follow up with PMD. Rx of KEFLEX, DIPHENHYDRAMINE given. Patient educated on indication of medication including possible reaction and side effects. Opportunity to ask questions provided and answered.
== END 2019-06-30 00:30 | disposition home or self-care (01) ==
LOC: MED 21:40
DX: L03.115 Cellulitis of right lower limb (principal); L03.116 Cellulitis of left lower limb; J45.909 Unspecified asthma, uncomplicated; I10 Essential (primary) hypertension; Z79.899 Other long term (current) drug therapy; Z59.0 Homelessness; Z88.1 Allergy status to other antibiotic agents; Z88.2 Allergy status to sulfonamides
CPT/HCPCS: 93005; 99283

== ENCOUNTER 2019-12-09 20:07 | Emergency (ER) | payer OTHER ==
[~2019-12-09] VITALS: Ht 177.8 cm; Wt 93.0 kg
[2019-12-09 20:13] VITALS: BP 125/80
--- NOTE | 2019-12-09 20:24 | NUR ---
PT TAKEN TO BED 2
--- NOTE | 2019-12-09 20:25 | NUR ---
Dr. Lim examining patient.
[2019-12-09] MEDS ORDERED: NACL 0.9% 1,000 ML IV ONE (20:30)
[2019-12-09] MEDS ORDERED: KETOROLAC 30 MG/ML VIAL IVP ONE (20:35)
--- NOTE | 2019-12-09 20:40 | NUR ---
39 Y/O C/O RLQ ABD PAIN X 1 DAY , VOMIT (X2 EPISODES) , + CONSTIPATION , + BODY ACHES. PT STATES 7/10 PRESSURE LIKE PAIN IN RLQ. PT STATES HE TOOK TYLENOL AND NAPROXEN, WITH NO RELIEF. PMH: HIATAL HERNIA , ASTHMA , NEUROPATHY , CELLULITIS, LEG ULCERS AX: BACTRIM
[2019-12-09] MEDS ORDERED: ONDANSETRON 4 MG/2 ML VIAL IVP ONE (20:50)
[2019-12-09 21:12] LABS: BASOPHILS % (AUTO) 0.4 % (0.0-2.0); EOSINOPHILS % (AUTO) 0.5 % (0.0-4.0); HEMATOCRIT 45.2 % (36-52); MEAN CORPUSCULAR HEMOGLOBIN 29 pg (27-31); MEAN CORPUSCULAR HGB CONC 33 g/dL (33-37); MEAN CORPUSCULAR VOLUME 87.2 fL (80-94); MONOCYTES # (AUTO) 0.4 K/uL (0.8-1.0); MONOCYTES % (AUTO) 7.2 % (1.7-9.3); NEUTROPHILS # (AUTO) 4.4 K/uL (1.8-7.7); NEUTROPHILS % (AUTO) 74.9 % (42.2-75.2); PLATELET COUNT (AUTO) 193 K/uL (140-450); RED BLOOD CELL COUNT(AUTO) 5.19 MIL/uL (4.20-6.10); RED CELL DISTRIBUTION WIDTH 15.9 % (11.6-13.7); WHITE BLOOD COUNT (AUTO) 5.9 K/uL (4.8-10.8)
--- NOTE | 2019-12-09 21:47 | NUR ---
PT STATES "I HAVE MORE PAIN NOW THAN BEFORE. I JUST WANT TO LEAVE NOW." ANUSHKA CHAPIN MADE AWARE OF PT WISHES
[2019-12-09 21:50] VITALS: BP 125/80
[2019-12-09] MEDS ORDERED: MORPHINE SULFATE 2 MG/ML SYR IVP ONE (21:50)
--- NOTE | 2019-12-09 21:50 | NUR ---
PT REQUESTING TO LEAVE FACILITY, MORPHINE IVP NON ADMINISTERED.
--- NOTE | 2019-12-09 21:50 | NUR ---
Patient does not wish to proceed with medical care recommended by DR CHAPIN. Patient given information related to possible complications, up to and including , which could occur as a result of leaving hospital at this time. Patient verbalizes understanding of risks involved leaving against medical advice. ID Band Removed. IV Removed. Patient has signed AMA form.
--- NOTE | 2019-12-10 10:20 | NUR ---
LATE ENTRY- Normal saline 0.9% IV fluids discontinued at 2150.
== END 2019-12-09 21:50 | disposition left against medical advice (07) ==
LOC: MED 20:07
DX: R10.9 Unspecified abdominal pain (principal); J45.909 Unspecified asthma, uncomplicated; I10 Essential (primary) hypertension; Z88.1 Allergy status to other antibiotic agents; Z88.2 Allergy status to sulfonamides; Z85.028 Personal history of other malignant neoplasm of stomach; Z79.899 Other long term (current) drug therapy
CPT/HCPCS: 36415; 85025; 96374; 96375; 99284; J1885; J2405; J7030